=== PATIENT | female | born 1945 | race Caucasian/White ===

== ENCOUNTER 2024-01-21 10:13 | Outpatient (OUT) | payer MEDICARE, SELFPAY ==
[2024-01-21 10:33] LABS: Basophils Absolute Auto 0.1 10^3/uL (0.0-0.1); Basophils Percent Auto 0.8 % (0.2-2.0); Eosinophils Absolute Auto 0.1 10^3/uL (0.0-0.7); Eosinophils Percent Auto 1.5 % (0.9-7.0); Hematocrit 48.4 % (36.0-48.0); Hemoglobin 15.7 g/dL (12.0-16.0); Immature Granulocytes Abs Auto 0.03 10^3/uL (0.00-0.03); Immature Granulocytes Pct Auto 0.4 % (0.0-0.5); Lymphocytes Absolute Auto 3.3 10^3/uL (1.2-3.8); Lymphocytes Percent Auto 43.3 % (20.5-60.0); Mean Corpuscular HGB Conc 32.4 g/dL (29.9-35.2); Mean Corpuscular Hemoglobin 29.5 pg (26.7-34.0); Mean Corpuscular Volume 90.8 fL (81.0-99.0); Mean Platelet Volume 10.5 fL (9.5-13.5); Monocytes Absolute Auto 0.5 10^3/uL (0.3-0.8); Monocytes Percent Auto 6.8 % (1.7-12.0); Neutrophils Absolute Auto 3.6 10^3/uL (1.4-6.5); Neutrophils Percent Auto 47.2 % (43.0-75.0); Platelet Count 243 10^3/uL (150-450); Red Blood Count 5.33 10^6/uL (4.20-5.40); White Blood Count 7.5 10^3/uL (4.0-11.0)
[2024-01-21 10:59] LABS: Alanine Aminotransferase 32 U/L (14-59); Albumin Globulin Ratio 1.1; Albumin Level 3.9 g/dL (3.4-5.0); Alkaline Phosphatase 113 U/L (46-116); Anion Gap 12.7; Aspartate Amino Transferase 20 U/L (15-37); Bilirubin Direct 0.1 mg/dL (0.0-0.2); Bilirubin Total 0.5 mg/dL (0.2-1.0); Calcium 9.7 mg/dL (8.5-10.1); Carbon Dioxide 30.4 mmol/L (21.0-32.0); Chloride 103 mmol/L (98-107); Cholesterol 214 mg/dL (<=200); Estimated GFR (African America >60 (>=60); Estimated GFR (Non-African Ame >60 (>=60); Globulin 3.6 g/dL; Glucose 96 mg/dL (74-106); HDL Cholesterol 71 mg/dL (40-60); Potassium 4.1 mmol/L (3.5-5.1); Sodium 142 mmol/L (136-145); Thyroid Stimulating Hormone 1.298 uIU/mL (0.358-3.740); Total Protein 7.5 g/dL (6.4-8.2); Triglycerides 178 mg/dL (<=150); VLDL CHOLESTEROL 35.6 mg/dL
== END 2024-01-21 10:14 | disposition home or self-care (01) ==
LOC: LAB 10:16
PROVIDERS: PCP Family Medicine; Visit Provider Family Medicine
DX: E78.5 Hyperlipidemia, unspecified (principal); I10 Essential (primary) hypertension; Z79.899 Other long term (current) drug therapy; E66.9 Obesity, unspecified
CPT/HCPCS: 36415; 80048; 80061; 80076; 84443; 85025

== ENCOUNTER 2024-03-03 16:38 | Outpatient (OUT) | payer MEDICARE, SELFPAY ==
--- OUTSIDE RECORDS SUMMARY | 2024-03-03 17:00 | XMS_ITS | CCD ---
Author Organization [facility] Care Team Providers Care Environmental Science Professor Name Role Phone Gilda Thomson Unavailable RALPH Wise Attending Provider Lesley Wise Unavailable Lesley Wise Attending Unavailable Lesley Wise Admitting Unavailable WALLY, DR NURIA Hays Primary Care Unavailable PAY ., DR LUEVANO Attending Unavailable PAY ., DR LUEVANO Admitting Unavailable PAY ., DR LUEVANO Consulting Unavailable NADERER, DR NURIA Hays Consulting Unavailable NADEREMatt, DR NURIA Hays Attending Unavailable NADERER, DR NURIA Hays Admitting Unavailable NADERER, DR NURIA Hays Primary Care Unavailable [place], DR ARNALDO Rodriguez Consulting Unavailable NADERER, DR NURIA Hays Attending Unavailable NADERER, DR NURIA Hays Admitting Unavailable NADERER, DR NURIA Hays Primary Care Unavailable NADERER, DR NURIA Hays Consulting Unavailable NADERER, NURIA Attending Unavailable Allergies Allergy Classification Reported Allergen(s) Allergy Type Date of Onset Reaction(s) Facility (4 sources) diphenhydrAMINE; Translations: [Benadryl] Drug Allergy 01-05-20 17 throat [facility] Repository (1 source) diphenhydrAMINE Drug Allergy throat [facility] Other Medications Current Medications Medication Drug Class(es) Dates Sig (Normalized) Sig (Original) cephalexin 500 mg oral capsule (4 sources) Cephalosporin Antibacterial Start: 10-15-2022 take 1 capsule by mouth every eight hours Cephalexin 500 MG 1 capsule Orally three times a day for 7 days Oct, Active Start: 09-04-2021 take 1 tablet by toney th every twelve hours Cephalexin 500 MG 1 tablet Orally every 12 hrs for 10 day(s) Aug, Active ferrous sulfate (1 source) take 1 tablet by mouth once daily Ferrous Sulfate 325 (65 Fe) MG 1 tablet Orally Once a day Active lisinopril 5 mg oral tablet (4 sources) Angiotensin Converting Enzyme Inhibitor take 1 tablet by mouth every twenty-four hours Lisinopril 5 MG 1 tablet Orally Once a day Active Lisinopril Activ e methylPREDNISolone 4 mg oral tablet (1 source) Corticosteroid Start: 10-15-2022 methylPREDNISolone 4 MG as directed Orally Once a day for 6 days Oct, Active omeprazole 20 mg delayed release oral capsule (4 sources) Proton Pump Inhibitor take 1 capsule by mouth twice daily Omeprazole 20 MG 1 capsule 30 minutes before morning meal Orally twice a day Active Omeprazole Activ e Completed/Discontinued Medications Medication Drug Class(es) Dates Sig (Normalized) Sig (Original) fluconazole 150 mg oral tablet (4 sources) Azole Antifungal Start: 10-15-2022 Diflucan 150 MG 1 tablet Orally if needed after antibiotics completed for 1 days Oct, Active Start: 09-04-2021 take 1 tablet by mouth once Fl uconazole 150 MG 1 tablet Orally once for 1 day Aug, Active Problems Active Problems Problem Classification Problem Date Documented Date Episodic/Chronic Chronic obstructive pulmonary disease and bronchiectasis (1 source) Bronchitis, not specified as acute or chronic Episodic Disorders of lipid metabolism (1 source) Hyperlipidemia, unspecified; Translations: [HYPERLIPIDEMIA UNSPECIFIED] Onset: 01-19-2023 Chronic Essential hypertension (4 sources) Essential (primary) hypertension; Translations: [ESSENTIAL PRIMARY HYPERTENSION] Onset: 01-16-2023 Chronic Genitourinary symptoms and ill-defined conditions (4 sources) Frequency of micturition; Translations: [Other symptoms and signs involving the genitourinary system] Onset: 09-04-2021 Resolved: 09-04-2021 Episodic Other acquired deformities (1 source) Other forms of scoliosis, lumbar region; Translations: [OTHER FORMS SCOLIOSIS LUMBAR REGION] Onset: 11-23-2022 Chronic Other aftercare (1 source) Other termite renewal inspector (current) drug therapy; Translations: [OTH HALF-WAY CURRENT DRUG THERAPY] Onset: 01-19-2023 Episodic Other non-traumatic joint disorders (4 sources) Pain in left hip; Translations: [PAIN IN LEFT HIP] Onset: 11-21-2022 Episodic Other nutritional; endocrine; and metabolic disorders (1 source) Obesity, unspecified; Translations: [OBESITY UNSPECIFIED] Onset: 01-19-2023 Chronic Other nutritional; endocrine; and metabolic disorders (1 source) Body mass index (BMI) 30.0-30.9, adult; Translations: [BODY MASS INDEX BMI 30.0-30.9 ADULT] Onset: 01-19-2023 Chronic Spondylosis; intervertebral disc disorders; other back problems (1 source) Spondylosis without myelopathy or radiculopathy, lumbar region; Translations: [SPONDYLS W/O MYELO-/RADICULOP LUMB] Onset: 11-23-2022 Chronic Spondylosis; intervertebral disc disorders; other back problems (2 sources) Lumbago with sciatica, left side; Translations: [Radiculopathy, lumbar region] Onset: 11-16-2022 Episodic Unclassified (2 sources) LOW BACK PAIN, UNSPECIFIED; Translations: [LOW BACK PAIN, UNSPECIFIED] Onset: 11-16-2022 Urinary tract infections (1 source) Acute cystitis with hematuria Episodic Past or Other Problems Problem Classification Problem Date Documented Da te Episodic/Chronic Unclassified (1 source) Acute cough R05.1 Unclassified (1 source) LOW BACK PAIN, UNSPECIFIED; Translations: [LOW BACK PAIN, UNSPECIFIED] Onset: 11-14-2022 Results Test Name Value Interpretation Reference Range Facility CBC AUTO DIFFon 01-16-2023 BASO # 0.1 103/ul Normal 0.0-0.1 [facility] Comment on above: Performed By: #### C BC #### [facility] [address] [place] [address] Dr. Gustavo Han Basophils/100 WBC (Bld) 0.7 % Normal 0.2-2.0 [facility] Comment on above: Performed By: #### C BC #### [facility] [address] [place] [address] Dr. Gustavo Han EO # 0.1 103/ul Normal 0.0-0.7 [facility] Comment on above: Performed By: #### C BC #### [facility] [address] [place] [address] Dr. Gustavo Han Eosinophils/100 WBC (Bld) 2.0 % Normal 0.9-7.0 [facility] Comment on above: Performed By: #### C BC #### [facility] [address] [place] [address] Dr. Gustavo Han Erythrocyte distribution width (RBC) [Ratio] 13.1 % Normal 11.0-15.0 [facility] Comment on above: Performed By: #### C BC #### [facility] [address] [place] [address] Dr. Gustavo Han Hematocrit (Bld) [Volume fraction] 45.3 % Normal 36.0-48.0 [facility] Comment on above: Performed By: #### C BC #### [facility] [address] [place] [address] Dr. Gustavo Han Hemoglobin (Bld) [Mass/Vol] 15.2 g/dL Normal 12.0-16.0 [facility] Comment on above: Performed By: #### C BC #### [facility] [address] [place] [address] Dr. Gustavo Han IG # 0.02 10e3/ul Normal 0.00-0.03 [facility] Comment on above: Performed By: #### C BC #### [facility] [address] [place] [address] Dr. Gustavo Han IG % 0.3 % Normal 0.0-0.5 [facility] Comment on above: Performed By: #### C BC #### [facility] [address] [place] [address] Dr. Gustavo Han LYMPH # 2.5 103/ul Normal 1.2-3.8 [facility] Comment on above: Performed By: #### C BC #### [facility] [address] [place] [address] Dr. Gustavo Han Lymphocytes/100 WBC (Bld) 36.1 % Normal 20.5-60.0 [facility] Comment on above: Performed By: #### C BC #### [facility] [address] [place] [address] Dr. Gustavo Han MANUAL DIFF REQ NO Normal [facility] Comment on above: Performed By: #### C BC #### [facility] [address] [address] [address] Gustavo Han MCH (RBC) [Entitic mass] 29.7 pg Normal 26.7-34.0 [facility] Comment on above: Performed By: #### C BC #### [facility] [address] [place] [address] Dr. Gustavo Han MCHC (RBC) [Mass/Vol] 33.6 g/dL Normal 29.9-35.2 [facility] Comment on above: Performed By: #### C BC #### [facility] [address] [place] [address] Dr. Gustavo Han MCV (RBC) [Entitic vol] 88.5 fL Normal 81.0-99.0 [facility] Comment on above: Performed By: #### C BC #### [facility] [address] [place] [address] Dr. Gustavo Han MONO # 0.5 103/ul Normal 0.3-0.8 [facility] Comment on above: Performed By: #### C BC #### [facility] [address] [place] [address] Dr. Gustavo Han Monocytes/100 WBC (Bld) 6.8 % Normal 1.7-12.0 [facility] Comment on above: Performed By: #### C BC #### [facility] [address] [place] [address] Dr. Gustavo Han NEUT # 3.8 103/ul Normal 1.4-6.5 [facility] Comment on above: Performed By: #### C BC #### [facility] [address] [place] [address] Dr. Gustavo Han Neutrophils/100 WBC (Bld) 54.1 % Normal 43.0-75.0 [facility] Comment on above: Performed By: #### C BC #### [facility] [address] [place] [address] Dr. Gustavo Han Platelet mean volume (Bld) [Entitic vol] 10.6 fL Normal 9.5-13.5 [facility] Comment on above: Performed By: #### C BC #### [facility] [address] [address] [address] Gustavo Han PLT 230 103/ul Normal 150-450 [facility] Comment on above: Performed By: #### C BC #### [facility] [address] [address] [address] Gustavo Han RBC 5.12 106/ul Normal 4.20-5.40 [facility] Comment on above: Performed By: #### C BC #### [facility] [address] [address] [address] Gustavo Han WBC 7.0 103/ul Normal 4.0-11.0 [facility] Comment on above: Performed By: #### C BC #### [facility] [address] [place] [address] Dr. Gustavo Han LIPID PROFILEon 01-16-2023 CHOL-HDL RATIO NORM SEE BELOW Normal [facility] Comment on above: Result Comment: 3.3 - 4.4 LOW RISK 4.4 - 7.1 AVERAGE RISK 7.1 - 11.0 MODERATE RISK >11.0 HIGH RISK Performed By: #### T SH, LIVER, LIPID, BMP #### [facility] [address] [place] [address] Dr. Gustavo Han Cholesterol [Mass/Vol] 212 mg/dL Critically high <=200 [facility] Comment on above: Performed By: #### T SH, LIVER, LIPID, BMP #### [facility] [address] [place] [address] Dr. Gustavo Han Cholesterol in HDL [Mass/Vol] 63 mg/dL Critically high 40-60 [facility] Comment on above: Performed By: #### T SH, LIVER, LIPID, BMP #### [facility] [address] [place] [address] Dr. Gustavo Han Cholesterol in LDL [Mass/Vol] 120.0 mg/dL Normal [facility] Comment on above: Performed By: #### T SH, LIVER, LIPID, BMP #### [facility] [address] [place] [address] Dr. Gustavo Han Cholesterol.total /Cholesterol in HDL [Mass ratio] 3.4 {ratio} Normal [facility] Comment on above: Performed By: #### T SH, LIVER, LIPID, BMP #### [facility] [address] [place] [address] Dr. Gustavo Han HDL NORMAL > or = 60 mg/dl - LO W CARDIOVASCULAR RISK <40 mg/dl - HIGH CARDIOVASCULAR RISK Normal [facility] Comment on above: Performed By: #### T SH, LIVER, LIPID, BMP #### [facility] [address] [place] [address] Dr. Gustavo Han LDL CALC NORMAL SEE BELOW Normal [facility] Comment on above: Result Comment: <100 mg/dl OPTIMAL 100 - 129 mg/dl NEAR OR ABOVE OPTIMAL 130 - 159 mg/dl BORDERLINE HIGH 160 - 189 mg/dl HIGH >190 mg/dl VERY HIGH Performed By: #### T SH, LIVER, LIPID, BMP #### [facility] [address] [place] [address] Dr. Gustavo Han Triglyceride [Mass/Vol] 145 mg/dL Normal <=150 [facility] Comment on above: Performed By: #### T SH, LIVER, LIPID, BMP #### [facility] [address] [place] [address] Dr. Gustavo Han VLDL CALC 29.0 mg/dL Normal [facility] Comment on above: Performed By: #### T SH, LIVER, LIPID, BMP #### [facility] [address] [place] [address] Dr. Gustavo Han LIVER PROFILEon 01-16-2023 Albumin [Mass/Vol] 4.0 g/dL Normal 3.4-5.0 [facility] Comment on above: Performed By: #### T SH, LIVER, LIPID, BMP #### [facility] [address] [place] [address] Dr. Gustavo Han Albumin/Globulin [Mass ratio] 1.3 {ratio} Normal [facility] Comment on above: Performed By: #### T SH, LIVER, LIPID, BMP #### [facility] [address] [place] [address] Dr. Gustavo Han ALP [Catalytic activity/Vol] 94 U/L Normal 46-116 [facility] Comment on above: Performed By: #### T SH, LIVER, LIPID, BMP #### [facility] [address] [place] [address] Dr. Gustavo Han ALT [Catalytic activity/Vol] 28 U/L Normal 14-59 [facility] Comment on above: Performed By: #### T SH, LIVER, LIPID, BMP #### [facility] [address] [place] [address] Dr. Gustavo Han AST [Catalytic activity/Vol] 19 U/L Normal 15-37 [facility] Comment on above: Performed By: #### T SH, LIVER, LIPID, BMP #### [facility] [address] [place] [address] Dr. Gustavo Han BILI, CONJUGATED 0.1 mg/dL Normal 0.0-0.2 [facility] Comment on above: Performed By: #### T SH, LIVER, LIPID, BMP #### [facility] [address] [place] [address] Dr. Gustavo Han Bilirubin [Mass/Vol] 0.4 mg/dL Normal 0.2-1.0 [facility] Comment on above: Performed By: #### T SH, LIVER, LIPID, BMP #### [facility] [address] [place] [address] Dr. Gustavo Han Globulin (S) [Mass/Vol] 3.0 g/dL Normal [facility] Comment on above: Performed By: #### T SH, LIVER, LIPID, BMP #### [facility] [address] [place] [address] Dr. Gustavo Han Protein [Mass/Vol] 7.0 g/dL Normal 6.4-8.2 [facility] Comment on above: Performed By: #### T SH, LIVER, LIPID, BMP #### [facility] [address] [place] [address] Dr. Gustavo Han PROF CHEM 8 (BAS METB)on Anion gap [Moles/Vol] 13.3 mmol/L Normal [facility] Comment on above: Performed By: #### T SH, LIVER, LIPID, BMP #### [facility] [address] [address] [address] Gustavo Han Calcium [Mass/Vol] 10.2 mg/dL Critically high 8.5-10.1 [facility] Comment on above: Performed By: #### T SH, LIVER, LIPID, BMP #### [facility] [address] [address] [address] Gustavo Han Chloride [Moles/Vol] 105 mmol/L Normal 98-107 [facility] Comment on above: Performed By: #### T SH, LIVER, LIPID, BMP #### [facility] [address] [place] [address] Dr. Gustavo Han CO2 [Moles/Vol] 29.9 mmol/L Normal 21.0-32.0 [facility] Comment on above: Performed By: #### T SH, LIVER, LIPID, BMP #### [facility] [address] [place] [address] Dr. Gustavo Han Creatinine [Mass/Vol] 0.63 mg/dL Normal 0.55-1.02 [facility] Comment on above: Performed By: #### T SH, LIVER, LIPID, BMP #### [facility] [address] [place] [address] Dr. Gustavo Han EGFR-AF NIGERIAN >60 Normal >=60 [facility] Comment on above: Performed By: #### T SH, LIVER, LIPID, BMP #### [facility] [address] [place] [address] Dr. Gustavo Han EGFR-NON AF NIGERIAN >60 Normal >=60 [facility] Comment on above: Performed By: #### T SH, LIVER, LIPID, BMP #### [facility] [address] [place] [address] Dr. Gustavo Han Glucose [Mass/Vol] 99 mg/dL Normal 74-106 [facility] Comment on above: Performed By: #### T SH, LIVER, LIPID, BMP #### [facility] [address] [place] [address] Dr. Gustavo Han Potassium [Moles/Vol] 4.2 mmol/L Normal 3.5-5.1 [facility] Comment on above: Performed By: #### T BARBARA, LIVER, LIPID, BMP #### [facility] [address] [address] [address] Gustavo Han Sodium [Moles/Vol] 144 mmol/L Normal 136-145 [facility] Comment on above: Performed By: #### T BARBARA, LIVER, LIPID, BMP #### [facility] [address] [address] [address] Gustavo Han Urea nitrogen [Mass/Vol] 19.0 mg/dL Critically high 7.0-18.0 [facility] Comment on above: Performed By: #### T BARBARA, LIVER, LIPID, BMP #### [facility] [address] [address] [address] Gustavo Han Urea nitrogen/Creatini ne [Mass ratio] 30.2 mg/mg Normal [facility] Comment on above: Performed By: #### T BARBARA, LIVER, LIPID, BMP #### [facility] [address] [address] [address] Gustavo Han TSHon 01-16-2023 TSH 0.755 uIU/mL Normal 0.358-3.740 [facility] Comment on above: Performed By: #### T BARBARA, LIVER, LIPID, BMP #### [facility] [address] [address] [address] Gustavo Han XR LSPINE 2_3 VIEWSon 2022 XR LSPINE 2_3 VIEWS EXAMINATION: XR LSPINE 2_3 VIEWS HISTORY: Lumbago with sciatica COMPARISON: No relevant comparison available. FINDINGS: BONES: Rotatory levocurvature centered at L2-L3. Moderate diffuse degenerative spondylosis and facet osteoarthropathy DISC SPACES: Moderate to severe multilevel disc space narrowing with endplate sclerosis and vacuum disks PARASPINOUS: Negative. No paraspinous abnormality is seen. 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 Electronically authenticated by: ARNALDO NORIEGA Date: 2022-11-21 12:15 Normal [facility] COVID Quick Testingon 2021 Result Negative [facility] Other Urinalysis - AUTOMATEDon Appearance (U) CLOUDY [email or web address] Other Bilirubin Ql (U) Negative [employer] Other Color (U) yellow [facility] Other Glucose Ql (U) Negative [email or web address] Other Hemoglobin Ql (U) SMALL [employer] Other Ketones Ql (U) Negative [email or web address] Other Leukocyte esterase Test strip Ql (U) TRACE [facility] Other Nitrite Ql (U) Negative [email or web address] Other pH (U) 5.5 [pH] [facility] Other Protein Ql (U) Negative [email or web address] Other Specific gravity (U) [Rel density] >=1.030 [facility] Other Urobilinogen (U) [Mass/Vol] 0.2 mg/dL [facility] Other Urinalysis - AUTOMATED [facility] Other Urine Cultureon 10-15-2022 Bacteria identified Cx Nom (U) Reason for Exam Urgency of urination Urine Reason for Exam: Urgency of urination : Urine 20,000 colonies/ml mixed bacterial skin contaminants 2 Days PERFORMED BY: [place] [address] PATHOLOGIST MANAGER USER INTERFACE HARI BISHOP M.D. Normal [facility] Comment on above: Performed By: #### C UU #### [address] Urine Cultureon 09-04-2021 Urine Culture >100,000 [facility] Other Vital Signs Date Time Vital Sign Value Performing Clinician Facility 10-15-2022 12:50-0500 Body height 157.48 cm Lesley Wise Other [facility] Other 10-15-2022 12:50-0500 Body mass index (BMI) [Ratio] 30.1 kg/m2 Lesley Wise Other [facility] Other 10-15-2022 12:50-0500 Body temperature 98 [degF] Lesley Wise Other [facility] Other 10-15-2022 12:50-0500 Body weight 74.66 kg Lesley Wise Other [facility] Other 10-15-2022 12:50-0500 Diastolic blood pressure 78 mm[Hg] Lesley Wise Other [facility] Other 10-15-2022 12:50-0500 Respiratory rate 18 /min Lesley Wise Other [facility] Other 10-15-2022 12:50-0500 SaO2% (BldA) [Mass fraction] 95 % Lesley Wise Other [facility] Other 10-15-2022 12:50-0500 Systolic blood pressure 142 mm[Hg] Lesley Wise Other [facility] Other 09-04-2021 12:50-0400 Body height 157.48 cm Gilda Berto Other [facility] Other 09-04-2021 12:50-0400 Body mass index (BMI) [Ratio] 30.72 kg/m2 Gilda Ginty Other [facility] Other 09-04-2021 12:50-0400 Body temperature 96.5 [degF] Gilda Ginty Other [facility] Other 09-04-2021 12:50-0400 Body weight 76.2 kg Gilda Ginty Other [facility] Other 09-04-2021 12:50-0400 Diastolic blood pressure 94 mm[Hg] Gilda Ginty Other [facility] Other 09-04-2021 12:50-0400 Respiratory rate 16 /min Gilda Ginty Other [facility] Other 09-04-2021 12:50-0400 SaO2% (BldA) [Mass fraction] 96 % Gilda Ginty Other [facility] Other 09-04-2021 12:50-0400 Systolic blood pressure 143 mm[Hg] Gilda Ginty Other [facility] Other Encounters Encounter Date Encounter Type Care Provider Facility Start: 01-21-2024 End: 01-21-2024 ambulatory NURIA LO Not Available Start: 01-16-2023 End: 01-17-[address] NURIA LO Facility:[facility] Start: 11-21-2022 End: 11-22-[address] ARNALDO NORIEGA Facility:[facility] Start: 11-14-2022 End: 11-14-[address] NURIA LO Facility:[facility] Start: 10-15-2022 End: 10-15-2022 ambulatory Lesley Wise Facility:[facility] Start: 10-15-2022 Office outpatient visit 15 minutes Lesley Wise [facility] Start: 10-15-2022 End: 10-15-2022 ambulatory BREAD SUPERVISOR-C Lesley Wise Work Phone: [facility] Work Phone: Start: 10-15-2022 End: 10-15-2022 Departed Referred BREAD SUPERVISOR-C Lesley Wise Work Phone: [facility] [place] Start: 09-13-2021 End: 09-13-2021 ambulatory Gilda Ginty Other [facility] Other Start: 09-13-2021 Telephone encounter Gilda Ginty [facility] [address] Start: 09-07-2021 End: 09-07-2021 ambulatory Gilda Ginty Other [facility] Other Start: 09-07-2021 Telephone encounter Gilda Ginty [facility] Start: 09-04-2021 End: 09-04-2021 ambulatory Gilda Ginty Other [facility] Other Start: 09-04-2021 Office outpatient visit 15 minutes Gilda Ginty [facility] Plan of Treatment Date Care Activity Detail Author Bacteria identified in Urine by Culture [facility] Payers Date Payer Category Payer Self-pay [id number] 1960 Private Health Insurance [id number] 1945 Unknown [id number] 1945 Unknown [id number] 1945 Unknown [id number] .[id number] [id number] 1945 Unknown [id number] [id number] Medicare [id number] 2.16.8 [id number] Unknown [id number] 2.16.8 [id number] Social History Date Type Detail Facility Sex Assigned At [facility] Other Start: 1945 Sex Assigned At Female F [facility] Clinical Note 11-21-2022 Note Date & Type Note Facility 11-21-2022 Note PROCEDURE: XR HIP LT 2 3V WO PELVIS COMPARISON: None. HISTORY: Pain of left hip joint FINDINGS: BONES:No fracture, acute abnormality, or significant arthropathy. Focal sclerosis with a narrow zone of transition intertrochanteric femur likely a benign enostosis SOFT TISSUES:Negative. No visible soft tissue swelling. EFFUSION:None visible. OTHER: Negative. IMPRESSION: No acute abnormality Electronically authenticated by: ARNALDO NORIEGA Date: 2022-11-21 12:13 [facility] Evaluation note 10-15-2022 Note Date & Type Note Facility 10-15-2022 Evaluation note Encounter Date Diagnosis Assessment Notes Oct, Acute cough (ICD-10 - R05.1) Oct, Bronchitis (ICD-10 - J40) Take medications as directed. Rest and increase fluid intake. Take meds with food to prevent stomach upset. Use inhaler as needed for coughing spells and SOB. It is better to use inhaler a few times a day over the next 2-3 days. Follow up with primary care provider if symptoms do not improve with treatment plan, although it may take a few weeks for the cough to go away Oct, Urgency of urination (ICD-10 - R39.15) Oct, Acute cystitis with hematuria (ICD-10 - N30.01) Take medication as directed. Urine analysis shows abnormalities today in office. Urine culture will be sent to lab. Will call with results if warranted. Increase fluid intake. Follow hygiene guidelines such as wiping front to back, avoid using perfumed lotions, bath beads, bubble bath. Recommend follow up with primary care provider after treatment completed to make sure infection has cleared. [facility] Other Evaluation note 09-04-2021 Note Date & Type Note Facility 09-04-2021 Evaluation note Encounter Date Diagnosis Assessment Notes Aug, Frequency of urination (ICD-10 - R35.0) Aug, Suspected UTI (ICD-10 - R39.89) Discussed diagnosis with patient. Will treat patient for UTI. Instructed patient to take antibiotic as prescribed, take with food, complete entire course of therapy even if feeling better. Allergies and recent antibiotic use was reviewed with patient. Advised patient culture was sent today and we will call with her results if abx needs changed. Patient instructed to push fluids. Will send in rx for Diflucan per patient request. Advised patient to take Diflucan following antibiotic treatment if experiencing symptoms. Patient symptoms should improve in the next 48 hours, if symptoms persist follow up with PCP or UC. Immediate eval by ER if back or flank pain, fever, chills, N/V, or any other concerning symptoms. Patient verbalizes understanding and is agreeable to treatment plan [facility] Other Evaluation note Note Date & Type Note Facility Evaluation note No Information [facility] Other Evaluation note Note Date & Type Note Facility Evaluation note No assessment information [facility] Work Phone: History general Narrative - Reported Note Date & Type Note Facility History general Narrative - Reported Type Medical History hypertension Medical History acid reflux Medical History osteoarthritis Medical History Anxiety Medical History Depression Surgical History tonsillectomy and adenoidectomy Surgical History hysterectomy Surgical History appendectomy Surgical History right ankle surgery Surgical History right arm lump removed Hospitalization History See Above [facility] Other History general Narrative - Reported Note Date & Type Note Facility History general Narrative - Reported Type Medical History hypertension Medical History acid reflux Medical History osteoarthritis Medical History Anxiety Medical History Depression Medical History ANEMIC Surgical History tonsillectomy and adenoidectomy Surgical History hysterectomy Surgical History appendectomy Surgical History right ankle surgery Surgical History right arm lump removed Hospitalization History See Above [facility] Other Chief Complaint and Reason for Visit Chief Complaint R39.15 Advance Directives No Advanced Directives Records Found Advance Directive Response Recorded Date/ Time Advance Directives No September 13, 2021 2:34pm Summary Purpose Family History No Family History Records FoundNo Family History Records FoundNo Family History Records Found Additional Source Comments REASON FOR VISIT (unrecogniz ed section and content) cough, congestionURINARY RAJESH QUENCY, URGENCY Care Teams (unrecognized sec tion and content) Team Status: Inactive Member Role Status Dates RALPH Delgadillo Attending Provider Active Goals (unrecognized section and content) Goals may be documented in a n alternate section INFORMATION SOURCE (unrecogn ized section and content) DATE CREATED AUTHOR 10/18/2022 [facility] DATE CREATED AUTHOR AUTHOR'S ORGANIZ ATION 01/20/2023 [facility] DATE CREATED AUTHOR AUTHOR'S ORGANIZ ATION 01/21/2024 [facility] FOR RECORDS PERTAINING TO PATIENTS WHO ARE OR HAVE BEEN ENROLLED IN A CHEMICAL DEPENDENCY/SUBSTANCEABUSE PROGRAM, SOME INFORMATION MAY BE OMITTED. This clinical summary was aggregated from multiple sources. Caution should be exercised in using it in the provision of clinical care. This summary normalizes information from multiple sources, and as a consequence, information in this document may materially change the coding, format and clinical context of patient data. In addition, data may be omitted in some cases. CLINICAL DECISIONS SHOULD BE BASED ON THE PRIMARY CLINICAL RECORDS. [facility] [employer] provides no warranty or guarantee of the accuracy or completeness of information in this document.
[2024-03-03 17:03] LABS: Bilirubin Urine NEGATIVE (NEGATIVE); Blood Urine TRACE-I (NEGATIVE); Clarity Urine CLEAR (CLEAR); Color Urine YELLOW (YELLOW); Glucose Urine UA NEGATIVE (NEGATIVE); Ketones Urine NEGATIVE (NEGATIVE); Leukocyte Esterase Urine SMALL (NEGATIVE); Nitrite Urine NEGATIVE (NEGATIVE); Protein Urine NEGATIVE (NEG/TRACE); Specific Gravity Urine >=1.030 (1.005-1.025); Urobilinogen Urine 0.2 EU/dL (0.2-1.0)
[2024-03-03 17:04] LABS: Urine Microscopic Indicated YES
[2024-03-03 17:13] LABS: Bacteria Urine TRACE #/HPF (NONE SEEN); Mucus Urine TRACE (NONE SEEN); Squamous Epithelial Cell Urine FEW #/LPF (NONE/RARE)
[2024-03-03 17:14] LABS: Cast Seen? NONE SEEN #/LPF (NONE SEEN); Crystals Seen? None Seen #/HPF (None Seen); Urine Culture Indicated ALREADY ORDERED
== END 2024-03-03 16:39 | disposition home or self-care (01) ==
LOC: LAB 16:43
PROVIDERS: PCP Family Medicine; Visit Provider Family Medicine
DX: N39.0 Urinary tract infection, site not specified (principal)
CPT/HCPCS: 81001; 87086

== ENCOUNTER 2024-05-19 19:04 | Emergency (ER) | payer MEDICARE, SELFPAY ==
[2024-05-19 19:09] VITALS: BP 138/78; PULSE 90; TEMP 37.1; O2SAT 95; BMI 27.0
--- NOTE | 2024-05-19 19:21 | ECG_ITS ---
The [facility] Test Date: 2024-05-19 Pat Name: ANNETTE MACIEL Department: Room: - Gender: Female Return Agent: : 1945 Requested By: NURIA LO Order Number: [id number] Reading MD: MOLLY THRASHER Measurements Intervals [place] Rate: 82 P: 32 ME: 138 QRS: 9 QRSD: 90 T: -16 QT: 336 QTc: 375 Interpretive Statements 1100 Sinus rhythm 2420 RSR (QR) in lead V1/V2, consistent with right ventricular conduction delay 4068 Nonspecific Twave abnormality, can't exclude inferolateral ischemia 9130 borderline ECG Electronically Signed On 05-19-2024 23:08:29 EDT by MOLLY THRASHER
--- NOTE | 2024-05-19 21:54 | ED_ITS ---
HPI - Dizziness General Chief Complaint: Dizziness Stated Complaint: DIZZY Time Seen by Provider: 05/19/24 21:45 Source: patient Mode of arrival: Wheelchair History of Present Illness HPI Narrative: patient presents complaining of low grade fever since last week. States she was seen at Urgent Care today and they are treating her for Bronchitis. She informed them of her dizziness and she stated she has been having a problem with dizzine ss for the past month. states if she sits back down it resolves. She is asymptomatic now . Denies headache or extremity numbness or weakness. No ear pain Related Data Allergies Allergy/AdvReac Type Severity Reaction Status Date / Time diphenhydramine Allergy Severe Anaphylaxis Verified 05/19/24 19:18 [From Benadryl] Review of Systems ROS Status of ROS 10 or more systems reviewed and unremark able except as noted in history and below Exam Constitutional Vital Signs, click to edit/add: Last Vital Signs Temp 98.8 F 05/19/24 19:09 Pulse 86 05/19/24 22:59 Resp 18 05/19/24 22:59 BP 143/97 H 05/19/24 22:26 Pulse Ox 97 05/19/24 22:59 O2 Del Method Room Air 05/19/24 19:09 Common normals: no apparent distress, average body habitus, oriented x3, no limitations, healthy appearing, alert and well nourished [facility] Common normals: normocephalic and head/scalp atraumatic Tympanic membrane: TMs normal bilaterally Eye Common normals: PERRL, EOMs intact bilaterally and conjunctivae normal Respiratory Common normals: normal respiratory effort, no retractions, no use of accessory muscles and clear to auscultation bilaterally Cardio Common normals: regular rate, regular rhythm, S1 normal heart sound and S2 normal heart sound GI Common normals: Normal to inspection, nondistended, normoactive bowel sounds present, soft to palpation and non-tender Extremity Common normals: normal to inspection and full ROM Neuro Common normals: oriented x3, CN's II-XII intact bilaterally, moves all ex tremities and no focal motor deficits Psych Appearance: grossly normal Course Vital Signs Vital signs: Vital Signs Temperature 98.8 F 05/19/24 19:09 Pulse Rate 90 05/19/24 19:09 Respiratory Rate 18 05/19/24 19:09 Blood Pressure 138/78 07/08/24 19:09 Pulse Oximetry 95 05/19/24 19:09 Oxygen Delivery Method Room Air 05/19/24 19:09 Temperature 98.8 F 05/19/24 19:09 Pulse Rate 86 05/19/24 22:59 Respiratory Rate 18 05/19/24 22:59 Blood Pressure 143/97 H 05/19/24 22:26 Pulse Oximetry 97 05/19/24 22:59 Oxygen Delivery Method Room Air 05/19/24 19:09 MDM - Dizziness MDM Narrative Medical decision making narrative: patient presents complaining of dizziness for past month. Describe standing and feeling off balance. States the other day she tried walking on mulch and felt off balance. Was seen at urgent care today for URI but advised to come here because of her complaint of feeling off balance. No symptoms at this time. CT without acute changes. 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 labs WNL. Patient discharged and advised to follow up with her doctor to continue workup as an out patient Lab Data Labs: Lab Results 05/19/24 Range/Units 21:52 WBC 11.1 H (4.0-11.0) 10^3/uL RBC 5.18 (4.20-5.40) 10^6/uL Hgb 15.3 (12.0-16.0) g/dL Hct 45.3 (36.0-48.0) % MCV 87.5 (81.0-99.0) fL MCH 29.5 (26.7-34.0) pg MCHC 33.8 (29.9-35.2) g/dL RDW 12.5 (11.0-15.0) % Plt Count 218 (150-450) 10^3/uL MPV 11.0 (9.5-13.5) fL Neut % (Auto) 75.3 H (43.0-75.0) % Lymph % (Auto) 14.9 L (20.5-60.0) % Phillips % (Auto) 9.1 (1.7-12.0) % Eos % (Auto) 0.0 L (0.9-7.0) % Baso % (Auto) 0.4 (0.2-2.0) % Neut # (Auto) 8.4 H (1.4-6.5) 10^3/uL Lymph # (Auto) 1.7 (1.2-3.8) 10^3/uL Phillips # (Auto) 1.0 H (0.3-0.8) 10^3/uL Eos # (Auto) 0.0 (0.0-0.7) 10^3/uL Baso # (Auto) 0.0 (0.0-0.1) 10^3/uL Abs Immat Gran (auto) 0.03 (0.00-0.03) 10^3/uL Imm/Tot Granulo (auto) 0.3 (0.0-0.5) % Sodium 135 L (136-145) mmol/L Potassium 3.2 L (3.5-5.1) mmol/L Chloride 99 (98-107) mmol/L Carbon Dioxide 22.5 (21.0-32.0) mmol/L Anion Gap 16.7 BUN 15.0 (7.0-18.0) mg/dL Creatinine 0.72 (0.55-1.02) mg/dL Est GFR ( Amer) >60 (>=60) Est GFR (Non-Af Amer) >60 (>=60) BUN/Creatinine Ratio 20.8 Glucose 126 H (74-106) mg/dL Calcium 10.2 H (8.5-10.1) mg/dL Total Bilirubin 1.0 (0.2-1.0) mg/dL AST 19 (15-37) U/L ALT 30 (14-59) U/L Alkaline Phosphatase 106 (46-116) U/L Total Protein 7.6 (6.4-8.2) g/dL Albumin 3.8 (3.4-5.0) g/dL Globulin 3.8 g/dL Albumin/Globulin Ratio 1.0 Imaging Data Chest x-ray: Radiologist's impression: ITS Impressions Head CT 05/19/24 21:59 IMPRESSION: 1. No depressed skull fracture or intracranial hemorrhage. 2. 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 Mild to moderate cerebral volume loss. Electronically authenticated by: RO FARIA Date: 05/19/2024 23:26 Discharge Plan Discharge Stand Alone Forms: Portal Instructions Chief Complaint: Dizziness Clinical Impression: Dizziness, nonspecific Patient Disposition: Home, Self-Care Print Language: Bahraini Instructions: Dizziness (ED) Additional Instructions: follow up with your doctor this week for recheck Referrals: Van Grimm MD [Primary Care Provider] - 1 week
--- NOTE | 2024-05-19 21:59 | CT_ITS ---
The [address] [address] Patient Name: ANNETTE MACIEL MRN: [id number] date: 1945 Sex: F Assigned Patient Location: ER Current Patient Location: ER Accession/Order Number: [id number] Exam Date: 05/19/2024 22:10 Report Date: 05/19/2024 23:26 At the request of: JORJE CHOI Procedure: CT head/brain wo con EXAM: CT head/brain wo con HISTORY: Dizziness with multiple falls. TECHNIQUE: Axial CT scans through the head were obtained without IV contrast administration. Dose reduction techniques were achieved by using: automated exposure control and/or adjustment of mA and /or kV according to patient size and/or the use of an iterative reconstruction technique. COMPARISON: None. FINDINGS: Mild periventricular low attenuation in the cerebral hemispheres without associated mass effect. To the limit of CT, the posterior fossa appears unremarkable. No intracranial hemorrhage is present. No depressed skull fracture is present. The ventricular system and cortical sulci are prominent. No area of abnormal mass effect is shown. The visualized orbits show no gross mass. The visualized paranasal sinuses show no air-fluid levels. Mastoid air cells are clear. CT/CT head/brain wo con IMPRESSION: 1. No depressed skull fracture or intracranial hemorrhage. 2. 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 Mild to moderate cerebral volume loss. Electronically authenticated by: RO FARIA Date: 05/19/2024 23:26
[2024-05-19 22:04] LABS: Basophils Percent Auto 0.4 % (0.2-2.0); Hematocrit 45.3 % (36.0-48.0); Hemoglobin 15.3 g/dL (12.0-16.0); Immature Granulocytes Abs Auto 0.03 10^3/uL (0.00-0.03); Immature Granulocytes Pct Auto 0.3 % (0.0-0.5); Lymphocytes Absolute Auto 1.7 10^3/uL (1.2-3.8); Lymphocytes Percent Auto 14.9 % (20.5-60.0); Mean Corpuscular HGB Conc 33.8 g/dL (29.9-35.2); Mean Corpuscular Hemoglobin 29.5 pg (26.7-34.0); Mean Corpuscular Volume 87.5 fL (81.0-99.0); Monocytes Percent Auto 9.1 % (1.7-12.0); Neutrophils Absolute Auto 8.4 10^3/uL (1.4-6.5); Neutrophils Percent Auto 75.3 % (43.0-75.0); Platelet Count 218 10^3/uL (150-450); Red Blood Count 5.18 10^6/uL (4.20-5.40); Red Cell Distribution Width 12.5 % (11.0-15.0); White Blood Count 11.1 10^3/uL (4.0-11.0)
[2024-05-19 22:20] LABS: Alanine Aminotransferase 30 U/L (14-59); Albumin Level 3.8 g/dL (3.4-5.0); Alkaline Phosphatase 106 U/L (46-116); Anion Gap 16.7; Aspartate Amino Transferase 19 U/L (15-37); BUN Creatinine Ratio 20.8; Calcium 10.2 mg/dL (8.5-10.1); Carbon Dioxide 22.5 mmol/L (21.0-32.0); Chloride 99 mmol/L (98-107); Estimated GFR (African America >60 (>=60); Estimated GFR (Non-African Ame >60 (>=60); Globulin 3.8 g/dL; Glucose 126 mg/dL (74-106); Potassium 3.2 mmol/L (3.5-5.1); Sodium 135 mmol/L (136-145); Total Protein 7.6 g/dL (6.4-8.2)
[2024-05-19 22:26] VITALS: BP 143/97; BP 152/89; BP 154/100; PULSE 85; PULSE 88; PULSE 90
[2024-05-19 22:59] VITALS: PULSE 86; O2SAT 97
[2024-05-20 00:13] VITALS: BP 142/76; PULSE 80; O2SAT 100
== END 2024-05-20 00:13 | disposition home or self-care (01) ==
PROVIDERS: Emergency Provider Internal Medicine; PCP Family Medicine
DX: R42 Dizziness and giddiness (principal)
CPT/HCPCS: 36415; 70450; 80053; 85025; 93005; 99285

== ENCOUNTER 2024-05-28 20:48 | Outpatient (REF) | payer MEDICARE, SELFPAY ==
--- OUTSIDE RECORDS SUMMARY | 2024-05-28 20:52 | XMS_ITS | CCD ---
Author Organization [facility] Care Team Providers Care Doctor Of Nurse Anesthesia Name Role Phone Gilda Thomson Unavailable RALPH Wise Attending Provider [phone] Lesley Wise Unavailable Lesley Wise Attending Unavailable Lesley Wise Admitting Unavailable WALLY, DR VAN Hays Primary Care Unavailable PAY ., DR LUEVANO Attending Unavailable PAY ., DR LUEVANO Admitting Unavailable PAY ., DR LUEVANO Consulting Unavailable NADERER, DR VAN Hays Consulting Unavailable NADEREMatt, DR VAN Hays Attending Unavailable NADERER, DR VAN Hays Admitting Unavailable NADERER, DR VAN Hays Primary Care Unavailable [place], DR ARNALDO Rodriguez Consulting Unavailable NADERER, DR VAN Hays Attending Unavailable NADERER, DR VAN Hays Admitting Unavailable NADERER, DR VAN Hays Primary Care Unavailable NADERER, DR VAN Hays Consulting Unavailable NADERER, VAN Attending Unavailable Allergies Allergy Classification Reported Allergen(s) Allergy Type Date of Onset Reaction(s) Facility (4 sources) diphenhydrAMINE; Translations: [Benadryl] Drug Allergy 01-05-20 17 throat [facility] Repository (1 source) diphenhydrAMINE Drug Allergy throat [facility] [employer] Other Medications Current Medications Medication Drug Class(es) Dates Sig (Normalized) Sig (Original) ALPRAZolam 1 mg oral tablet (1 source) Benzodiazepine Start: 05-19-2024 Alprazolam Active MG PO May 19, 2024 12:00am Azithromycin (1 source) Macrolide Antimicrobial Start: 05-19-2024 Azithromycin Active 0 PO .COMPLEX 6 May 19, 2024 12:00am For 250 mg dose pack: take 500 mg today (day 1), then 250 mg for 4 days (days 2-5) PO cephalexin 500 mg oral capsule (4 sources) Cephalosporin Antibacterial Start: 10-15-2022 take 1 capsule by mouth every eight hours Cephalexin 500 MG 1 capsule Orally three times a day for 7 days Oct, Active Start: 09-04-2021 take 1 tablet by toney th every twelve hours Cephalexin 500 MG 1 tablet Orally every 12 hrs for 10 day(s) Aug, Active ferrous sulfate (2 sources) Start: 05-19-2024 take 1 tablet by toney th once daily Ferrous Sulfate Active 1 TAB PO Daily May 19, 2024 12:00am [employer] tablet Orally Once a day; Note: Source Status: Taking; Provider: Billie Sutton ( ) take 1 tablet by mouth once laquita y Ferrous Sulfate 325 (65 Fe) MG 1 tablet Orally Once a day Active lisinopril 5 mg oral tablet (5 sources) Angiotensin Converting Enzyme Inhibitor Start: 05-19-2024 Lisinopril Active MG PO May 19, 2024 12:00am take 1 tablet by toney th every twenty-four hours Lisinopril 5 MG 1 tablet Orally Once a day Active Lisinopril Activ e methylPREDNISolone 4 mg oral tablet (2 sources) Corticosteroid Start: 05-19-2024 take 1 tablet by mouth once Methylprednisolone (Medrol (Aristeo)) 4 mg tablets,dose pack Active 0 PO per package directions May 19, 2024 12:00am PO PER PKG DIR Start: 10-15-2022 methylPREDNISo lone 4 MG as directed Orally Once a day for 6 days Oct, Active omeprazole 20 mg delayed release oral capsule (5 sources) Proton Pump Inhibitor Start: 05-19-2024 Omeprazo le Active MG PO May 19, 2024 12:00am take 1 capsule by mouth twice da singh Omeprazole 20 MG 1 capsule 30 minutes [...] 11-23-2022 Chronic Other aftercare (1 source) Other terminal superintendent (current) drug therapy; Translations: [OTH RETIREMENT CURRENT DRUG THERAPY] Onset: 01-19-2023 Episodic Other [...] Test Name Value Interpretation Reference Range Facility No Panel InformationOrdered By: Silva Baker on 05-19-2024 COVID Antigen (POC) [facility] CBC AUTO DIFFon 01-16-2023 BASO # 0.1 103/ul Normal 0.0-0.1 [facility] Comment on above: Performed By: #### C BC #### [facility] [address] [address] [address] Gustvao Han Basophils/100 WBC (Bld) 0.7 % Normal 0.2-2.0 [facility] Comment on above: Performed By: #### C BC #### [facility] [address] [address] [address] Gustavo Han EO # 0.1 103/ul Normal 0.0-0.7 [facility] Comment on above: Performed By: #### C BC #### [facility] [address] [address] [address] Gustavo Han Eosinophils/100 WBC (Bld) 2.0 % Normal 0.9-7.0 [facility] Comment on above: Performed By: #### C BC #### [facility] [address] [address] [address] Gustavo Han Erythrocyte distribution width (RBC) [Ratio] 13.1 % Normal 11.0-15.0 [facility] Comment on above: Performed By: #### C BC #### [facility] [address] [address] [address] Gustavo Han Hematocrit (Bld) [Volume fraction] 45.3 % Normal 36.0-48.0 [facility] Comment on above: Performed By: #### C BC #### [facility] [address] [address] [address] Gustavo Han Hemoglobin (Bld) [Mass/Vol] 15.2 g/dL Normal 12.0-16.0 [facility] Comment on above: Performed By: #### C BC #### [facility] [address] [place] [address] Dr. Gustavo Han IG # 0.02 10e3/ul Normal 0.00-0.03 [facility] Comment on above: Performed By: #### C BC #### [facility] [address] [place] [address] Dr. uGstavo Han IG % 0.3 % Normal 0.0-0.5 [facility] Comment on above: Performed By: #### C BC #### [facility] [address] [place] [address] Dr. Gustavo Han LYMPH # 2.5 103/ul Normal 1.2-3.8 [facility] Comment on above: Performed By: #### C BC #### [facility] [address] [place] [address] Dr. Gustavo Han Lymphocytes/100 WBC (Bld) 36.1 % Normal 20.5-60.0 [facility] Comment on above: Performed By: #### C BC #### [facility] [address] [place] [address] Dr. Gustavo Han MANUAL DIFF REQ NO Normal [facility] Comment on above: Performed By: #### C BC #### [facility] [address] [place] [address] Dr. Gustavo Han MCH (RBC) [Entitic mass] 29.7 pg Normal 26.7-34.0 [facility] Comment on above: Performed By: #### C BC #### [facility] [address] [place] [address] Dr. Gustavo Han MCHC (RBC) [Mass/Vol] 33.6 g/dL Normal 29.9-35.2 [facility] Comment on above: Performed By: #### C BC #### [facility] [address] [place] [address] Dr. Gustavo Han MCV (RBC) [Entitic vol] 88.5 fL Normal 81.0-99.0 [facility] Comment on above: Performed By: #### C BC #### [facility] [address] [place] [address] Dr. Gustavo Han MONO # 0.5 103/ul Normal 0.3-0.8 [facility] Comment on above: Performed By: #### C BC #### [facility] [address] [place] [address] Dr. Gustavo Han Monocytes/100 WBC (Bld) 6.8 % Normal 1.7-12.0 [facility] Comment on above: Performed By: #### C BC #### [facility] [address] [place] [address] Dr. Gustavo Han NEUT # 3.8 103/ul Normal 1.4-6.5 [facility] Comment on above: Performed By: #### C BC #### [facility] [address] [place] [address] Dr. Gustavo Han Neutrophils/100 WBC (Bld) 54.1 % Normal 43.0-75.0 [facility] Comment on above: Performed By: #### C BC #### [facility] [address] [place] [address] Dr. Gustavo Han Platelet mean volume (Bld) [Entitic vol] 10.6 fL Normal 9.5-13.5 [facility] Comment on above: Performed By: #### C BC #### [facility] [address] [place] [address] Dr. Gustavo Han PLT 230 103/ul Normal 150-450 [facility] Comment on above: Performed By: #### C BC #### [facility] [address] [place] [address] Dr. Gustavo Han RBC 5.12 106/ul Normal 4.20-5.40 [facility] Comment on above: Performed By: #### C BC #### [facility] [address] [place] [address] Dr. Gustavo Han WBC 7.0 103/ul Normal 4.0-11.0 [facility] Comment on above: Performed By: #### C BC #### [facility] [address] [place] [address] Dr. Gustavo Han LIPID PROFILEon 01-16-2023 CHOL-HDL RATIO NORM SEE BELOW Normal [facility] Comment on above: Result Comment: 3.3 - 4.4 LOW RISK 4.4 - 7.1 AVERAGE RISK 7.1 - 11.0 MODERATE RISK >11.0 HIGH RISK Performed By: #### T SH, LIVER, LIPID, BMP #### [facility] [address] [address] [address] Gustavo Han Cholesterol [Mass/Vol] 212 mg/dL Critically high <=200 [facility] Comment on above: Performed By: #### T SH, LIVER, LIPID, BMP #### [facility] [address] [place] [address] Dr. Gustavo Han Cholesterol in HDL [Mass/Vol] 63 mg/dL Critically high 40-60 [facility] Comment on above: Performed By: #### T SH, LIVER, LIPID, BMP #### [facility] [address] [place] [address] Dr. Gustavo Han Cholesterol in LDL [Mass/Vol] 120.0 mg/dL Normal [facility] Comment on above: Performed By: #### T SH, LIVER, LIPID, BMP #### [facility] [address] [place] [address] Dr. Gustavo Han Cholesterol.total/Chol esterol in HDL [Mass ratio] 3.4 {ratio} Normal [facility] Comment on above: Performed By: #### T SH, LIVER, LIPID, BMP #### [facility] [address] [place] [address] Dr. Gustavo Han HDL NORMAL > or = 60 mg/dl - LOW CARDIOVASCULAR RISK <40 mg/dl - HIGH CARDIOVASCULAR RISK Normal [facility] Comment on above: Performed By: #### T SH, LIVER, LIPID, BMP #### [facility] [address] [place] [address] Dr. Gustavo Han LDL CALC NORMAL SEE BELOW Normal [facility] Comment on above: Result Comment: <100 mg/dl OPTIMAL 100 - 129 mg/dl NEAR OR ABOVE OPTIMAL 130 - 159 mg/dl BORDERLINE HIGH 160 - 189 mg/dl HIGH >190 mg/dl VERY HIGH Performed By: #### T SH, LIVER, LIPID, BMP #### [facility] [address] [address] [address] Gustavo Han Triglyceride [Mass/Vol] 145 mg/dL Normal <=150 [facility] Comment on above: Performed By: #### T SH, LIVER, LIPID, BMP #### [facility] [address] [address] [address] Gustavo Han VLDL CALC 29.0 mg/dL Normal [facility] Comment on above: Performed By: #### T SH, LIVER, LIPID, BMP #### [facility] [address] [address] [address] Gustavo Han LIVER PROFILEon 01-16-2023 Albumin [Mass/Vol] 4.0 g/dL Normal 3.4-5.0 [facility] Comment on above: Performed By: #### T SH, LIVER, LIPID, BMP #### [facility] [address] [place] [address] Dr. Gustavo Han Albumin/Globulin [Mass ratio] 1.3 {ratio} Normal [facility] Comment on above: Performed By: #### T SH, LIVER, LIPID, BMP #### [facility] [address] [place] [address] Dr. Gustavo Han ALP [Catalytic activity/Vol] 94 U/L Normal 46-116 [facility] Comment on above: Performed By: #### T SH, LIVER, LIPID, BMP #### [facility] [address] [place] [address] Dr. Gustavo Han ALT [Catalytic activity/Vol] 28 U/L Normal 14-59 [facility] Comment on above: Performed By: #### T SH, LIVER, LIPID, BMP #### [facility] [address] [place] [address] Dr. Gustavo Han AST [Catalytic activity/Vol] 19 U/L Normal 15-37 [facility] Comment on above: Performed By: #### T SH, LIVER, LIPID, BMP #### [facility] [address] [place] [address] Dr. Gustavo Han BILI, CONJUGATED 0.1 mg/dL Normal 0.0-0.2 [facility] Comment on above: Performed By: #### T SH, LIVER, LIPID, BMP #### [facility] [address] [place] [address] Dr. Gustavo Han Bilirubin [Mass/Vol] 0.4 mg/dL Normal 0.2-1.0 [facility] Comment on above: Performed By: #### T SH, LIVER, LIPID, BMP #### [facility] [address] [place] [address] Dr. Gustavo Han Globulin (S) [Mass/Vol] 3.0 g/dL Normal [facility] Comment on above: Performed By: #### T SH, LIVER, LIPID, BMP #### [facility] [address] [place] [address] Dr. Gustavo Han Protein [Mass/Vol] 7.0 g/dL Normal 6.4-8.2 [facility] Comment on above: Performed By: #### T , LIVER, LIPID, BMP #### [facility] [address] [place] [address] Dr. Gustavo Han PROF CHEM 8 (BAS METB)on Anion gap [Moles/Vol] 13.3 mmol/L Normal [facility] Comment on above: Performed By: #### T SH, LIVER, LIPID, BMP #### [facility] [address] [place] [address] Dr. Gustavo Han Calcium [Mass/Vol] 10.2 mg/dL Critically high 8.5-10.1 [facility] Comment on above: Performed By: #### T SH, LIVER, LIPID, BMP #### [facility] [address] [place] [address] Dr. Gustavo Han Chloride [Moles/Vol] 105 mmol/L Normal 98-107 [facility] Comment on above: Performed By: #### T SH, LIVER, LIPID, BMP #### [facility] [address] [place] [address] Dr. Gustavo Han CO2 [Moles/Vol] 29.9 mmol/L Normal 21.0-32.0 [facility] Comment on above: Performed By: #### T SH, LIVER, LIPID, BMP #### [facility] [address] [address] [address] Gustavo Han Creatinine [Mass/Vol] 0.63 mg/dL Normal 0.55-1.02 [facility] Comment on above: Performed By: #### T SH, LIVER, LIPID, BMP #### [facility] [address] [address] [address] Gustavo Han EGFR-AF BHUTANESE >60 Normal >=60 [facility] Comment on above: Performed By: #### T SH, LIVER, LIPID, BMP #### [facility] [address] [place] [address] Dr. Gustavo Han EGFR-NON AF BHUTANESE >60 Normal >=60 [facility] Comment on above: Performed By: #### T SH, LIVER, LIPID, BMP #### [facility] [address] [address] [address] Gustavo Han Glucose [Mass/Vol] 99 mg/dL Normal 74-106 [facility] Comment on above: Performed By: #### T SH, LIVER, LIPID, BMP #### [facility] [address] [place] [address] Dr. Gustavo Han Potassium [Moles/Vol] 4.2 mmol/L Normal 3.5-5.1 [facility] Comment on above: Performed By: #### T SH, LIVER, LIPID, BMP #### [facility] [address] [place] [address] Dr. Gustavo Han Sodium [Moles/Vol] 144 mmol/L Normal 136-145 [facility] Comment on above: Performed By: #### T SH, LIVER, LIPID, BMP #### [facility] [address] [place] [address] Dr. Gustavo Han Urea nitrogen [Mass/Vol] 19.0 mg/dL Critically high 7.0-18.0 [facility] Comment on above: Performed By: #### T SH, LIVER, LIPID, BMP #### [facility] [address] [place], [place] [address] Dr. Gustavo Han Urea nitrogen/Creatinine [Mass ratio] 30.2 mg/mg Normal [facility] Comment on above: Performed By: #### T SH, LIVER, LIPID, BMP #### [facility] [address] [place], [place] [address] Dr. Gustavo Han TSHon 01-16-2023 TSH 0.755 uIU/mL Normal 0.358-3.740 [facility] Comment on above: Performed By: #### T SH, LIVER, LIPID, BMP #### [facility] [address] [place], [place] [address] Dr. Gustavo Han XR LSPINE 2_3 VIEWSon [...] ARNALDO NORIEGA Date: 2022-11-21 12:15 Normal [facility] COVID Quick Testingon 2021 Result Negative [employer] Other Urinalysis - AUTOMATEDon Appearance (U) CLOUDY [employer] Other Bilirubin Ql (U) Negative [employer] Other Color (U) yellow [employer] Other Glucose Ql (U) Negative [employer] Other Hemoglobin Ql (U) SMALL [employer] X[employer] Other Ketones Ql (U) Negative [employer] Other Leukocyte esterase Test strip Ql (U) TRACE [employer] Other Nitrite Ql (U) Negative [employer] Other pH (U) 5.5 [pH] [employer] Other Protein Ql (U) Negative [employer] Other Specific gravity (U) [Rel density] >=1.030 [employer] Other Urobilinogen (U) [Mass/Vol] 0.2 mg/dL [employer] Other Urinalysis - AUTOMATED No rt [employer] Other Urine Cultureon 10-15-2022 Bacteria identified Cx Nom (U) Reason for Exam Urgency of urination Urine Reason for Exam: Urgency of urination : Urine 20,000 colonies/ml mixed bacterial skin contaminants 2 Days PERFORMED BY: [place] [address] PATHOLOGIST ANIMAL CRUELTY INVESTIGATOR HARI BISHOP M.D. [facility] Comment on above: Performed By: #### C UU #### [address] Urine Cultureon 09-04-2021 Urine Culture >100,000 [employer] Other Vital Signs Date Time Vital Sign Value Performing Clinician Facility 05-19-2024 18:05-0400 Body height 157.48 cm [facility] 05-19-2024 18:05-0400 Body mass index (BMI) [Ratio] 27.2 kg/m2 [facility] 05-19-2024 18:05-0400 Body temperature 99.6 [degF] [facility] 05-19-2024 18:05-0400 Body weight 67.64 kg [facility] 05-19-2024 18:05-0400 Diastolic blood pressure 78 mm[Hg] [facility] 05-19-2024 18:05-0400 Heart rate 62 /min [facility] 05-19-2024 18:05-0400 SaO2% (BldA) [Mass fraction] 96 % [facility] 05-19-2024 18:05-0400 Systolic blood pressure 153 mm[Hg] [facility] 10-15-2022 12:50-0500 Body height 157.48 cm Lesley Wise Other [employer] Other 10-15-2022 12:50-0500 Body mass index (BMI) [Ratio] 30.1 kg/m2 Lesley Wise Other [employer] Other 10-15-2022 12:50-0500 Body temperature 98 [degF] Lesley Wise Other [employer] Other 10-15-2022 12:50-0500 Body weight 74.66 kg Lesley Wise Other [employer] Other 10-15-2022 12:50-0500 Diastolic blood pressure 78 mm[Hg] Lesley Wise Other [employer] Other 10-15-2022 12:50-0500 Respiratory rate 18 /min Lesley Wise Other [employer] Other 10-15-2022 12:50-0500 SaO2% (BldA) [Mass fraction] 95 % Lesley Wise Other [employer] Other 10-15-2022 12:50-0500 Systolic blood pressure 142 mm[Hg] Lesley Garnerault Other [employer] Other 09-04-2021 12:50-0400 Body height 157.48 cm Gilda Thomson Other [employer] Other 09-04-2021 12:50-0400 Body mass index (BMI) [Ratio] 30.72 kg/m2 Gilda Ginty Other [employer] Other 09-04-2021 12:50-0400 Body temperature 96.5 [degF] Gilda Ginty Other [employer] Other 09-04-2021 12:50-0400 Body weight 76.2 kg Gilda Ginty Other [employer] Other 09-04-2021 12:50-0400 Diastolic blood pressure 94 mm[Hg] Gilda Ginty Other [employer] Other 09-04-2021 12:50-0400 Respiratory rate 16 /min Gilda Ginty Other [employer] Other 09-04-2021 12:50-0400 SaO2% (BldA) [Mass fraction] 96 % Gilda Ginty Other [employer] Other 09-04-2021 12:50-0400 Systolic blood pressure 143 mm[Hg] Gilda Ginty Other [employer] Other Encounters Encounter Date Encounter Type Care Provider Facility Start: 05-19-2024 End: 05-19-2024 ambulatory [facility] Work Phone: Start: 05-19-2024 End: 05-19-2024 Patient encounter procedure [facility] Work Phone: Start: 01-21-2024 End: 01-21-2024 ambulatory VAN LO Not Available Start: 01-16-2023 End: 01-17-[address] VAN LO Facility: Start: 11-21-2022 End: 11-22-[address] ARNALDO NORIEGA Facility:[facility] Start: 11-14-2022 End: 11-14-[address] VAN LO Facility:[facility] Start: 10-15-2022 End: 10-15-2022 ambulatory Lesley Wise Facility:[facility] Start: 10-15-2022 Office outpatient visit 15 minutes Lesley Wise [facility] Start: 10-15-2022 End: 10-15-2022 ambulatory [employer] Lesley Wise Work Phone: [facility] Work Phone: Start: 10-15-2022 End: 10-15-2022 Departed Referred [employer] Lesley Wise Work Phone: [facility] [place] Start: 09-13-2021 End: 09-13-2021 ambulatory Gilda Ginty Other [employer] Other Start: 09-13-2021 Telephone encounter Gilda Ginty [facility] [address] Start: 09-07-2021 End: 09-07-2021 ambulatory Gilda Ginty Other [employer] Other Start: 09-07-2021 Telephone encounter Gilda Ginty [facility] Start: 09-04-2021 End: 09-04-2021 ambulatory Gilda Ginty Other [facility] Other Start: 09-04-2021 Office outpatient visit 15 minutes Gilda Ginty [facility] Procedures Date Procedure Procedure Detail Performing Clinician Start: 05-19-2024 COVID Antigen (POC) Plan of Treatment Date Care Activity Detail Author Bacteria identified in Urine by Culture [facility] Payers Date Payer Category Payer Self-pay [id number] Private Health Insurance [id number] 1945 Unknown [id number] [id number] 1945 Unknown [id number] [id number] [id number] 1945 Unknown [id number] [id number] [id number] 1945 Unknown [id number] 2.16.84 [id number] Medicare [id number] [id number] Unknown [id number] 2.16.8 [id number] Social History Date Type Detail Facility Sex Assigned At [employer] Other Start: 1945 Sex Assigned At Female [facility] Start: 12-07-2016 Tobacco smoking stat us NHIS Never smoked tobacco (finding) [facility] Clinical Note 11-21-2022 Note Date & [...] authenticated by: ARNALDO NORIEGA Date: 2022-11-21 12:13 [facility] Evaluation note 10-15-2022 Note Date & Type [...] completed to make sure infection has cleared. [employer] Other Evaluation note 09-04-2021 Note Date & [...] understanding and is agreeable to treatment plan [employer] Other Evaluation note Note Date & Type Note Facility Evaluation note No Information [employer] Other Evaluation note Note Date & Type Note Facility Evaluation note No assessment information [facility] Work Phone: History general Narrative - Reported Note Date & Type Note Facility History general Narrative - Reported Type Medical History hypertension Medical History acid reflux Medical History osteoarthritis Medical History Anxiety Medical History Depression Surgical History tonsillectomy and adenoidectomy Surgical History hysterectomy Surgical History appendectomy Surgical History right ankle surgery Surgical History right arm lump removed Hospitalization History See Above [employer] Other History general Narrative - Reported Note Date & Type Note Facility History general Narrative - Reported Type Medical History hypertension Medical History acid reflux Medical History osteoarthritis Medical History Anxiety Medical History Depression Medical History ANEMIC Surgical History tonsillectomy and adenoidectomy Surgical History hysterectomy Surgical History appendectomy Surgical History right ankle surgery Surgical History right arm lump removed Hospitalization History See Above [employer] Other Chief Complaint and Reason for Visit Chief Complaint R39.15 Chief Complaint congestion, fever,Na ricky sent her med for vertigo Advance Directives Advance Directive Response Recorded Date/ Time Advance Directives No September 13, 2021 2:34pm Advance Directive Response Recorded Date/ Time Advance Directives No September 13, 2021 3:34pm Summary Purpose Family History Relationship Condition Age at Onset Recorded Date/T [place] father Unknown family member Unknown mother Unknown Additional Source Comments REASON FOR VISIT (unrecogniz ed section and content) cough, congestionURINARY RAJESH QUENCY, URGENCY Care Teams (unrecognized sec tion and content) Team Status: Inactive Member Role Status Dates RALPH Delgadillo Attending Provider Active Team Status: Active Member Role Status Dates Van Lo MD Primary Care Provider Active Team Status: Inactive Member Role Status Dates Van Lo MD Primary Care Provider Active S tart: May 19, 2024 End: May 19, 2024 Silva Baker APRN Attending Provider Active S tart: May 19, 2024 End: May 19, 2024 Goals (unrecognized section and content) Goals may be documented in a n alternate section INFORMATION SOURCE (unrecogn ized section and content) DATE CREATED AUTHOR 10/18/2022 [facility] DATE CREATED AUTHOR AUTHOR'S ORGANIZ ATION 01/20/2023 [facility] DATE CREATED AUTHOR AUTHOR'S ORGANIZ ATION 01/21/2024 [facility] FOR RECORDS PERTAINING TO PATIENTS WHO ARE [...] BE BASED ON THE PRIMARY CLINICAL RECORDS. [facility] [employer] [facility]. provides no warranty or guarantee of the accuracy or completeness of information in this document.
== END 2024-05-28 20:49 | disposition home or self-care (01) ==
LOC: LAB 20:48
PROVIDERS: PCP Family Medicine; Visit Provider Internal Medicine
DX: R39.9 Unspecified symptoms and signs involving the genitourinary system (principal)
CPT/HCPCS: 87086

== ENCOUNTER 2024-06-04 11:42 | Emergency (ER) | payer MEDICARE, SELFPAY ==
--- OUTSIDE RECORDS SUMMARY | 2024-06-04 11:50 | XMS_ITS ---
Patient Summarization (C-CDA 2.1 CCD) Created on: June 04, 2024 ANNETTE MACIEL : 1945 Sex: Female Author Organization Sample organization Care Team Providers Care Airline Operations Agent Name Role Phone Gilda Thomson Unavailable RALPH Wise Attending Provider [phone] Lesley Wise Unavailable Lesley Wise Attending Unavailable Lesley Wise Admitting Unavailable NADEVELYN, DR VAN Hays Primary Care Unavailable PAY ., DR LUEVANO Attending Unavailable PAY ., DR LUEVANO Admitting Unavailable PAY ., DR LUEVANO Consulting Unavailable NADERER, DR VAN Hays Consulting Unavailable NADERER, DR VAN Hays Attending Unavailable NADERER, DR VAN Hays Admitting Unavailable NADERER, DR VAN Hays Primary Care Unavailable GLENDALE, DR ARNALDO Rodriguez Consulting Unavailable NADERER, DR VAN Hays Attending Unavailable NADERER, DR VAN Hays Admitting Unavailable NADERER, DR VAN Hays Primary Care Unavailable NADERER, DR VAN Hays Consulting Unavailable NADERER, VAN Attending Unavailable SHAIKH REYES Attending Unavailable Allergies Allergy Classification Reported Allergen(s) Allergy Type Date of Onset Reaction(s) Facility (4 sources) diphenhydrAMINE; Translations: [Benadryl] Drug Allergy 01-05-20 17 throat swells [facility] Repository (1 source) diphenhydrAMINE Drug Allergy throat swes [employer] Other Encounters Encounter Date Encounter Type Care Provider Facility Start: 05-22-2024 End: 05-22-2024 ambulatory SHAIKH AMY Not Available Start: 05-19-2024 End: 05-19-2024 ambulatory [facility] Work Phone: Start: 05-19-2024 End: 05-19-2024 Patient encounter procedure [facility] Work Phone: Start: 01-21-2024 End: 01-21-2024 ambulatory VAN LO Not Available Start: 01-16-2023 End: 01-17-[address] VAN LO Facility:[facility] Start: 11-21-2022 End: 11-22-[address] ARNALDO NORIEGA Facility:[facility] Start: 11-14-2022 End: 11-14-[address] VAN LO Facility:[facility] Start: 10-15-2022 End: 10-15-2022 ambulatory Lesley Wise Facility:[facility] Start: 10-15-2022 Office outpatient visit 15 minutes Lesley Billie [facility] Start: 10-15-2022 End: 10-15-2022 ambulatory PACKAGE WRAPPER-C Lesley Wise Work Phone: [facility] Work Phone: Start: 10-15-2022 End: 10-15-2022 Departed Referred PACKAGE WRAPPER-C Lesley Wise Work Phone: [facility] [place] Start: 09-13-2021 End: 09-13-2021 ambulatory Gilda Ginty Other [employer] Other Start: 09-13-2021 Telephone encounter Gilda Ginty [facility] [address] Start: 09-07-2021 End: 09-07-2021 ambulatory Gilda Ginty Other [employer] Other Start: 09-07-2021 Telephone encounter Gilda Ginty [facility] Start: 09-04-2021 End: 09-04-2021 ambulatory Gilda Ginty Other [employer] Other Start: 09-04-2021 Office outpatient visit 15 minutes Gilda Ginty [facility] Medications Current Medications Medication Drug Class(es) Dates Sig (Normalized) Sig (Original) ALPRAZolam 1 mg oral tablet (1 source) Benzodiazepine Start: 05-19-2024 Alprazolam Active MG PO May 19, 2024 12:00am Azithromycin (1 source) Macrolide Antimicrobial Start: 05-19-2024 Azithromycin Active 0 PO .COMPLEX May 19, 2024 12:00am For 250 mg [...] Orally once for 1 day Aug, Active Payers Date Payer Category Payer Self-pay [id number] 1960 Private Health Insurance [id number] 1945 Unknown [id number] 2.16.84 [id number] 1945 Unknown [id number] 2.16.84 [id number] 1945 Unknown [id number] 2.16.84 [id number] 1945 Unknown [id number] 2.16.84 [id number] 1945 Unknown [id number] 2.16.84 [id number] Medicare [id number] 2.16.8 [id number] Unknown [id number] 2.16.8 [id number] Plan of Treatment Date Care Activity Detail Author Bacteria identified in Urine by Culture [facility] Problems Active Problems Problem Classification Problem Date [...] Chronic Other aftercare (1 source) Other termite control servicer (current) drug therapy; Translations: [OTH PRISON CURRENT DRUG THERAPY] Onset: 01-19-2023 Episodic Other [...] Translations: [LOW BACK PAIN, UNSPECIFIED] Onset: 11-14-2022 Procedures Date Procedure Procedure Detail Performing Clinician Start: 05-19-2024 COVID Antigen (POC) Results Test Name Value Interpretation Reference Range Facility No Panel InformationOrdered By: Silva Baker on 05-19-2024 COVID Antigen (POC) [facility] CBC AUTO DIFFon 01-16-2023 BASO # 0.1 103/ul Normal 0.0-0.1 [facility] Comment on above: Performed By: #### C BC #### [facility] [address] [address] [address] Gustavo Han Basophils/100 WBC (Bld) 0.7 % Normal 0.2-2.[address] [facility] Comment on above: Performed By: #### C BC #### [facility] [address] [address] [address] Gustavo Han EO # 0.1 103/ul Normal 0.0-0.[address] [facility] Comment on above: Performed By: #### C BC #### [facility] [address] [place] [address] Dr. Gustavo Han Eosinophils/100 WBC (Bld) 2.0 % Normal 0.9-7.0 [facility] Comment on above: Performed By: #### C BC #### [facility] [address] [place] [address] Dr. Gustavo Han Erythrocyte distribution width (RBC) [Ratio] 13.1 % Normal 11.0-15.0 [facility] Comment on above: Performed By: #### C BC #### [facility] [address] [place] [address] Dr. Gustavo Han Hematocrit (Bld) [Volume fraction] 45.3 % Normal 36.0-48.0 [facility] Comment on above: Performed By: #### C BC #### [facility] [address] [place] [address] Dr. Gustavo Han Hemoglobin (Bld) [Mass/Vol] 15.2 g/dL Normal 12.0-16.[address] [facility] Comment on above: Performed By: #### C BC #### [facility] [address] [place] [address] Dr. Gustavo Han IG # 0.02 10e3/ul Normal 0.00-0.03 [facility] Comment on above: Performed By: #### C BC #### [facility] [address] [place] [address] Dr. Gustavo Han IG % 0.3 % Normal 0.0-0.5 [facility] Comment on above: Performed By: #### C BC #### [facility] [address] [place] [address] Dr. Gustavo Han LYMPH # 2.5 103/ul Normal 1.2-3.[address] [facility] Comment on above: Performed By: #### C BC #### [facility] [address] [place] [address] Dr. Gustavo Han Lymphocytes/100 WBC (Bld) 36.1 % Normal 20.5-60.0 [facility] Comment on above: Performed By: #### C BC #### [facility] [address] [place] [address] Dr. Gustavo Han MANUAL DIFF REQ NO Normal [facility] Comment on above: Performed By: #### C BC #### [facility] [address] [place] [address] Dr. Gustavo Han MCH (RBC) [Entitic mass] 29.7 pg Normal 26.7-34.0 [facility] Comment on above: Performed By: #### C BC #### [facility] [address] [place] [address] Dr. Gustavo Han MCHC (RBC) [Mass/Vol] 33.6 g/dL Normal 29.9-35.[address] [facility] Comment on above: Performed By: #### C BC #### [facility] [address] [place] [address] Dr. Gustavo Han MCV (RBC) [Entitic vol] 88.5 fL Normal 81.0-99.[address] [facility] Comment on above: Performed By: #### C BC #### [facility] [address] [place] [address] Dr. Gustavo Han MONO # 0.5 103/ul Normal 0.3-0.[address] [facility] Comment on above: Performed By: #### C BC #### [facility] [address] [place] [address] Dr. Gustavo Han Monocytes/100 WBC (Bld) 6.8 % Normal 1.7-12.0 [facility] Comment on above: Performed By: #### C BC #### [facility] [address] [place] [address] Dr. Gustavo Han NEUT # 3.8 103/ul Normal 1.4-6.5 [facility] Comment on above: Performed By: #### C BC #### [facility] [address] [place] [address] Dr. Gustavo Han Neutrophils/100 WBC (Bld) 54.1 % Normal 43.0-75.0 [facility] Comment on above: Performed By: #### C BC #### [facility] [address] [place] [address] Dr. Gustavo Han Platelet mean volume (Bld) [Entitic vol] 10.6 fL Normal 9.5-13.5 [facility] Comment on above: Performed By: #### C BC #### [facility] [address] [place] [address] Dr. Gustavo Han PLT 230 103/ul Normal 150-450 [facility] Comment on above: Performed By: #### C BC #### [facility] [address] [place] [address] Dr. Gustavo Han RBC 5.12 106/ul Normal 4.20-5.40 [facility] Comment on above: Performed By: #### C BC #### [facility] [address] [place] [address] Dr. Gustavo Han WBC 7.0 103/ul Normal 4.0-11.0 [facility] Comment on above: Performed By: #### C BC #### [facility] [address] [place] [address] Dr. Gustavo Han LIPID PROFILEon 01-16-2023 CHOL-HDL RATIO NORM SEE BELOW Normal [facility] Comment on above: Result Comment: 3.3 - 4.4 LOW RISK 4.4 - 7.1 AVERAGE RISK 7.1 - 11.0 MODERATE RISK >11.0 HIGH RISK Performed By: #### T SH, LIVER, LIPID, BMP #### [facility] [address] [address] [address] Gustavo Han Cholesterol [Mass/Vol] 212 mg/dL Critically high <=[address] [facility] Comment on above: Performed By: #### T SH, LIVER, LIPID, BMP #### [facility] [address] [address] [address] Gustavo Han Cholesterol in HDL [Mass/Vol] 63 mg/dL Critically high 40-[address] [facility] Comment on above: Performed By: #### T SH, LIVER, LIPID, BMP #### [facility] [address] [address] [address] Gustavo Han Cholesterol in LDL [Mass/Vol] 120.0 mg/dL Normal [facility] Comment on above: Performed By: #### T SH, LIVER, LIPID, BMP #### [facility] [address] [address] [address] Gustavo Han Cholesterol.total/Chol esterol in HDL [Mass ratio] 3.4 {ratio} Normal [facility] Comment on above: Performed By: #### T SH, LIVER, LIPID, BMP #### [facility] [address] [address] [address] Gustavo Han HDL NORMAL > or = 60 mg/dl - LOW CARDIOVASCULAR RISK <40 mg/dl - HIGH CARDIOVASCULAR RISK Normal [facility] Comment on above: Performed By: #### T SH, LIVER, LIPID, BMP #### [facility] [address] [address] [address] Gustavo Han LDL CALC NORMAL SEE BELOW Normal [facility] Comment on above: Result Comment: <100 mg/dl OPTIMAL 100 - 129 mg/dl NEAR OR ABOVE OPTIMAL 130 - 159 mg/dl BORDERLINE HIGH 160 - 189 mg/dl HIGH >190 mg/dl VERY HIGH Performed By: #### T SH, LIVER, LIPID, BMP #### [facility] [address] [address] [address] Gustavo Han Triglyceride [Mass/Vol] 145 mg/dL Normal <=[address] [facility] Comment on above: Performed By: #### T SH, LIVER, LIPID, BMP #### [facility] [address] [address] [address] Gustavo Han VLDL CALC 29.0 mg/dL Normal [facility] Comment on above: Performed By: #### T SH, LIVER, LIPID, BMP #### [facility] [address] [address] [address] Gustavo Han LIVER PROFILEon 01-16-2023 Albumin [Mass/Vol] 4.0 g/dL Normal 3.4-5.0 [facility] Comment on above: Performed By: #### T SH, LIVER, LIPID, BMP #### [facility] [address] [address] [address] Gustavo Han Albumin/Globulin [Mass ratio] 1.3 {ratio} Normal [facility] Comment on above: Performed By: #### T SH, LIVER, LIPID, BMP #### [facility] [address] [place] [address] Dr. Gustavo Han ALP [Catalytic activity/Vol] 94 U/L Normal 46-116 [facility] Comment on above: Performed By: #### T SH, LIVER, LIPID, BMP #### [facility] [address] [place] [address] Dr. Gustavo Han ALT [Catalytic activity/Vol] 28 U/L Normal 14-59 [facility] Comment on above: Performed By: #### T SH, LIVER, LIPID, BMP #### [facility] [address] [place] [address] Dr. Gustavo Han AST [Catalytic activity/Vol] 19 U/L Normal 15-37 [facility] Comment on above: Performed By: #### T SH, LIVER, LIPID, BMP #### [facility] [address] [place] [address] Dr. Gustavo Han BILI, CONJUGATED 0.1 mg/dL Normal 0.0-0.2 [facility] Comment on above: Performed By: #### T SH, LIVER, LIPID, BMP #### [facility] [address] [place] [address] Dr. Gustavo Han Bilirubin [Mass/Vol] 0.4 mg/dL Normal 0.2-1.0 [facility] Comment on above: Performed By: #### T SH, LIVER, LIPID, BMP #### [facility] [address] [address] [address] Gustavo Han Globulin (S) [Mass/Vol] 3.0 g/dL Normal [facility] Comment on above: Performed By: #### T SH, LIVER, LIPID, BMP #### [facility] [address] [address] [address] Gustavo Han Protein [Mass/Vol] 7.0 g/dL Normal 6.4-8.2 [facility] Comment on above: Performed By: #### T SH, LIVER, LIPID, BMP #### [facility] [address] [place] [address] Dr. Gustavo Han PROF CHEM 8 (BAS METB)on Anion gap [Moles/Vol] 13.3 mmol/L Normal [facility] Comment on above: Performed By: #### T SH, LIVER, LIPID, BMP #### [facility] [address] [place] [address] Dr. Gustavo Han Calcium [Mass/Vol] 10.2 mg/dL Critically high 8.5-10.1 [facility] Comment on above: Performed By: #### T SH, LIVER, LIPID, BMP #### [facility] [address] [place] [address] Dr. Gustavo Han Chloride [Moles/Vol] 105 mmol/L Normal 98-107 [facility] Comment on above: Performed By: #### T SH, LIVER, LIPID, BMP #### [facility] [address] [place] [address] Dr. Gustavo Han CO2 [Moles/Vol] 29.9 mmol/L Normal 21.0-32.0 [facility] Comment on above: Performed By: #### T SH, LIVER, LIPID, BMP #### [facility] [address] [place] [address] Dr. Gustavo Han Creatinine [Mass/Vol] 0.63 mg/dL Normal 0.55-1.02 [facility] Comment on above: Performed By: #### T SH, LIVER, LIPID, BMP #### [facility] [address] [address] [address] Gustavo Han EGFR-AF BELIZEAN >60 Normal >=60 [facility] Comment on above: Performed By: #### T SH, LIVER, LIPID, BMP #### [facility] [address] [address] [address] Gustavo Han EGFR-NON AF BELIZEAN >60 Normal >=60 [facility] Comment on above: Performed By: #### T SH, LIVER, LIPID, BMP #### [facility] [address] [address] [address] Gustavo Han Glucose [Mass/Vol] 99 mg/dL Normal 74-106 [facility] Comment on above: Performed By: #### T SH, LIVER, LIPID, BMP #### [facility] [address] [address] [address] Gustavo Han Potassium [Moles/Vol] 4.2 mmol/L Normal 3.5-5.1 [facility] Comment on above: Performed By: #### T SH, LIVER, LIPID, BMP #### [facility] [address] [address] [address] Gustavo Han Sodium [Moles/Vol] 144 mmol/L Normal 136-145 [facility] Comment on above: Performed By: #### T SH, LIVER, LIPID, BMP #### [facility] [address] [address] [address] Gustavo Han Urea nitrogen [Mass/Vol] 19.0 mg/dL Critically high 7.0-18.0 [facility] Comment on above: Performed By: #### T SH, LIVER, LIPID, BMP #### [facility] [address] [address] [address] Gustavo Han Urea nitrogen/Creatinine [Mass ratio] 30.2 mg/mg Normal [facility] Comment on above: Performed By: #### T SH, LIVER, LIPID, BMP #### [facility] [address] [address] [address] Gustavo Han TSHon 01-16-2023 TSH 0.755 uIU/mL Normal 0.358-3.740 [facility] Comment on above: Performed By: #### T SH, LIVER, LIPID, BMP #### [facility] [address] [place] [address] Dr. Gustavo Han XR LSPINE 2_3 VIEWSon [...] ARNALDO NORIEGA Date: 2022-11-21 12:15 Normal [facility] COVID Quick Testingon 2021 Result Negative [employer] Other Urinalysis - AUTOMATEDon Appearance (U) CLOUDY [employer] Other Bilirubin Ql (U) Negative [employer] Other Color (U) yellow [employer] Other Glucose Ql (U) Negative [employer] Other Hemoglobin Ql (U) SMALL [employer] Other Ketones Ql (U) Negative [employer] Other Leukocyte esterase Test strip Ql (U) TRACE [employer] Other Nitrite Ql (U) Negative [employer] Other pH (U) 5.5 [pH] [employer] Other Protein Ql (U) Negative [employer] Other Specific gravity (U) [Rel density] >=1.030 [employer] Other Urobilinogen (U) [Mass/Vol] 0.2 mg/dL [facility] [employer] Other Urinalysis - AUTOMATED [facility] [employer] Other Urine Cultureon 10-15-2022 Bacteria identified Cx Nom (U) Reason for Exam Urgency of urination Urine Reason for Exam: Urgency of urination : Urine 20,000 colonies/ml mixed bacterial skin contaminants 2 Days PERFORMED BY: [place] [address] PATHOLOGIST EXTERIOR DOOR INSTALLER HARI BISHOP M.D. Normal [facility] Comment on above: Performed By: #### C UU #### [address] Urine Cultureon 09-04-2021 Urine Culture >100,000 [facility] [employer] Other Social History Date Type Detail Facility Start: 12-07-2016 Tobacco smoking stat us KYIS Never smoked tobacco (finding) [facility] Start: 1945 Sex Assigned At Female F [facility] Sex Assigned At [facility] [employer] Other Vital Signs Date Time Vital Sign Value Performing Clinician Facility 05-19-2024 18:05-0400 Body height 157.48 cm [facility] 05-19-2024 18:05-0400 Body mass index (BMI) [Ratio] 27.2 kg/m2 [facility] 05-19-2024 18:05-0400 Body temperature 99.6 [degF] [facility] 05-19-2024 18:05-0400 Body weight 67.64 kg [facility] 05-19-2024 18:05-0400 Diastolic blood pressure 78 mm[Hg] [facility] 05-19-2024 18:05-0400 Heart rate 62 /min [facility] 05-19-2024 18:05-0400 SaO2% (BldA) [Mass fraction] 96 % [facility] 05-19-2024 18:05-0400 Systolic blood pressure 153 mm[Hg] [facility] 10-15-2022 12:50-0500 Body height 157.48 cm Lesley Wise Other [employer] Other 10-15-2022 12:50-0500 Body mass index (BMI) [Ratio] 30.1 kg/m2 Lesley Wise Other [employer] Other 10-15-2022 12:50-0500 Body temperature 98 [degF] Lesley Wise Other [employer] Other 10-15-2022 12:50-0500 Body weight 74.66 kg Lesley Wise Other [employer] Other 10-15-2022 12:50-0500 Diastolic blood pressure 78 mm[Hg] Lesley Wise Other [employer] Other 10-15-2022 12:50-0500 Respiratory rate 18 /min Lesley Wise Other [employer] Other 10-15-2022 12:50-0500 SaO2% (BldA) [Mass fraction] 95 % Lesley Wise Other [employer] Other 10-15-2022 12:50-0500 Systolic blood pressure 142 mm[Hg] Lesley Wise Other [employer] Other 09-04-2021 12:50-0400 Body height 157.48 cm Gilda Ginty Other [employer] Other 09-04-2021 12:50-0400 Body mass index (BMI) [Ratio] 30.72 kg/m2 Gilda Ginty Other [employer] Other 09-04-2021 12:50-0400 Body temperature 96.5 [degF] Gilda Ginty Other [employer] Other 09-04-2021 12:50-0400 Body weight 76.2 kg Gilda Ginty Other [employer] Other 09-04-2021 12:50-0400 Diastolic blood pressure 94 mm[Hg] Gilda Ginty Other [employer] Other 09-04-2021 12:50-0400 Respiratory rate 16 /min Gilda Ginty Other [employer] Other 09-04-2021 12:50-0400 SaO2% (BldA) [Mass fraction] 96 % Gilda Ginty Other [employer] Other 09-04-2021 12:50-0400 Systolic blood pressure 143 mm[Hg] Gilda Ginty Other [employer] Other Clinical Note 11-21-2022 Note Date & Type [...] authenticated by: ARNALDO NORIEGA Date: 2022-11-21 12:13 [facility] Evaluation note 10-15-2022 Note Date & [...] completed to make sure infection has cleared. [employer] Other Evaluation note 09-04-2021 Note Date & [...] understanding and is agreeable to treatment plan [employer] Other Evaluation note Note Date & Type Note Facility Evaluation note No Information [employer] Other Evaluation note Note Date & Type Note Facility Evaluation note No assessment information [facility] Work Phone: History general Narrative - Reported Note Date & Type Note Facility History general Narrative - Reported Type Medical History hypertension Medical History acid reflux Medical History osteoarthritis Medical History Anxiety Medical History Depression Surgical History tonsillectomy and adenoidectomy Surgical History hysterectomy Surgical History appendectomy Surgical History right ankle surgery Surgical History right arm lump removed Hospitalization History See Above [employer] Other History general Narrative - Reported Note Date & Type Note Facility History general Narrative - Reported Type Medical History hypertension Medical History acid reflux Medical History osteoarthritis Medical History Anxiety Medical History Depression Medical History ANEMIC Surgical History tonsillectomy and adenoidectomy Surgical History hysterectomy Surgical History appendectomy Surgical History right ankle surgery Surgical History right arm lump removed Hospitalization History See Above [employer] Other Chief Complaint and Reason for Visit Chief Complaint R39.15 Chief Complaint congestion, fever,Na ricky sent her med for vertigo Advance Directives No Advanced Directives Records Found Advance Directive Response Recorded Date/ Time Advance Directives No September 13, 2021 2:34pm Advance Directive Response Recorded Date/ Time Advance Directives No September 13, 2021 3:34pm Summary Purpose Family History No Family History Records Found Relationship Condition Age at Onset Recorded Date/T [...] section and content) DATE CREATED AUTHOR 10/18/2022 [facility] DATE CREATED AUTHOR AUTHOR'S ORGANIZ ATION 01/20/2023 [facility] DATE CREATED AUTHOR AUTHOR'S ORGANIZ ATION 05/28/2024 [facility] RECORDS PERTAINING TO PATIENTS WHO [...] BE BASED ON THE PRIMARY CLINICAL RECORDS. [facility]. provides no warranty or guarantee of the accuracy or completeness of information in this document.
[2024-06-04 11:56] VITALS: BP 150/96; PULSE 74; TEMP 36.9; O2SAT 97; BMI 28.5
[2024-06-04 12:24] VITALS: PULSE 78; O2SAT 96
--- NOTE | 2024-06-04 12:40 | ED.GENADUL1 ---
HPI HPI - General Adult General Chief complaint: Allergic Reaction Stated complaint: RASH ON FACE Time Seen by Provider: 06/04/24 12:23 Source: patient Mode of arrival: walk-in Limitations: no limitations History of Present Illness HPI narrative: Patient presents ED complaint of rash on her face and lip swelling. Patient states she started a new antibiotic yesterday, Levaquin for acute bronchitis. Patient states when she woke up today she had some areas of swelling and itching on her face and her lips were swollen. She denies any pain. She states she has been dealing with a cough and sickness for the past couple of weeks. She was on steroids a couple of weeks ago. She was then started on a new antibiotic yesterday for the bronchitis and then woke up with the itchy rash and swollen lips. She denies any increased shortness of breath, there is no wheezing, no difficulty speaking or handling secretions. Related Data Home Medications ?Medication ?Instructions ?Recorded ?Confirmed alprazolam 0.5 mg tablet 0.5 mg PO PRN PRN anxiety 06/04/24 06/04/24 lisinopril 5 mg tablet 5 mg PO DAILY 06/04/24 06/04/24 meclizine 25 mg tablet 25 mg PO DAILY 06/04/24 06/04/24 omeprazole 20 mg capsule,delayed 20 mg PO DAILY 06/04/24 06/04/24 release Previous Rx's ?Medication ?Instructions ?Recorded methylprednisolone 4 mg tablets in See Rx Instructions .Route 06/04/24 a dose pack (Medrol (Aristeo)) .COMPLEX #21 ea Allergies Allergy/AdvReac Type Severity Reaction Status Date / Time diphenhydramine Allergy Severe Anaphylaxis Verified 05/19/24 19:18 [From Benadryl] Opioid HPI Opioid Management Most Recent Opioid Data: No Data to Display Review of Systems ROS Status of ROS 10 or more systems reviewed and unremarkable except as noted in history and below Exam Narrative Exam Narrative: General: alert, no acute distress Cardiovascular: regular rate and rhythm, normal peripheral perfusion. Respiratory: Lungs CTA, respirations non labored. Extremities: no deformity, no trauma. Neurological: oriented x 4, LOC appropriate for age. Patient has some areas of erythema and induration on the left side of the face. Lips are swollen. No tongue swelling no posterior pharynx swelling. No wheezing no stridor. Constitutional Vital Signs, click to edit/add: Last Vital Signs Temp 98.4 F 06/04/24 11:56 Pulse 73 06/04/24 13:49 Resp 18 06/04/24 14:05 BP 138/90 06/04/24 13:49 Pulse Ox 98 06/04/24 14:05 O2 Del Method Room Air 06/04/24 14:05 Course Vital Signs Vital signs: Vital Signs Temperature 98.4 F 06/04/24 11:56 Pulse Rate 74 06/04/24 11:56 Respiratory Rate 18 06/04/24 11:56 Blood Pressure 150/96 H 06/04/24 11:56 Pulse Oximetry 97 06/04/24 11:56 Oxygen Delivery Method Room Air 06/04/24 11:56 Temperature 98.4 F 06/04/24 11:56 Pulse Rate 73 06/04/24 13:49 Respiratory Rate 18 06/04/24 14:05 Blood Pressure 138/90 06/04/24 13:49 Pulse Oximetry 98 06/04/24 14:05 Oxygen Delivery Method Room Air 06/04/24 14:05 Medical Decision Making MDM Narrative Medical decision making narrative: Patient was given IV Decadron and IV Pepcid. She is feeling much better after being monitored here in ED. Her lip swelling has greatly improved. She does still have some [place] area like reaction on the left side of the face but the lip swelling is much improved. Patient will be sent home with prednisone taper. Return to ED if worsening symptoms. Discontinue the Levaquin at home. Follow-up with your family doctor, return to ED if worsening symptoms. Differential Diagnosis Differential Diagnosis: Allergic reaction, shingles, rash Medical Records Medical records reviewed: Yes I reviewed the patient's medical records Lab Data Lab results reviewed: Yes I reviewed the patient's lab results Labs: Lab Results 06/04/24 Range/Units 13:00 WBC 6.3 (4.0-11.0) 10^3/uL RBC 5.00 (4.20-5.40) 10^6/uL Hgb 14.9 (12.0-16.0) g/dL Hct 44.2 (36.0-48.0) % MCV 88.4 (81.0-99.0) fL MCH 29.8 (26.7-34.0) pg MCHC 33.7 (29.9-35.2) g/dL RDW 12.7 (11.0-15.0) % Plt Count 309 (150-450) 10^3/uL MPV 10.5 (9.5-13.5) fL Neut % (Auto) 57.4 (43.0-75.0) % Lymph % (Auto) 33.4 (20.5-60.0) % Lagrange % (Auto) 6.8 (1.7-12.0) % Eos % (Auto) 0.6 L (0.9-7.0) % Baso % (Auto) 1.3 (0.2-2.0) % Neut # (Auto) 3.6 (1.4-6.5) 10^3/uL Lymph # (Auto) 2.1 (1.2-3.8) 10^3/uL [place] # (Auto) 0.4 (0.3-0.8) 10^3/uL Eos # (Auto) 0.0 (0.0-0.7) 10^3/uL Baso # (Auto) 0.1 (0.0-0.1) 10^3/uL Abs Immat Gran (auto) 0.03 (0.00-0.03) 10^3/uL Imm/Tot Granulo (auto) 0.5 (0.0-0.5) % Sodium 140 (136-145) mmol/L Potassium 3.9 (3.5-5.1) mmol/L Chloride 104 (98-107) mmol/L Carbon Dioxide 28.0 (21.0-32.0) mmol/L Anion Gap 11.9 BUN 14.0 (7.0-18.0) mg/dL Creatinine 0.73 (0.55-1.02) mg/dL Est GFR ( Amer) >60 (>=60) Est GFR (Non-Af Amer) >60 (>=60) BUN/Creatinine Ratio 19.2 Glucose 110 H (74-106) mg/dL Calcium 9.8 (8.5-10.1) mg/dL Total Bilirubin 0.4 (0.2-1.0) mg/dL AST 14 L (15-37) U/L ALT 25 (14-59) U/L Alkaline Phosphatase 100 (46-116) U/L Total Protein 7.0 (6.4-8.2) g/dL Albumin 3.5 (3.4-5.0) g/dL Globulin 3.5 g/dL Albumin/Globulin Ratio 1.0 Discharge Plan Discharge Stand Alone Forms: Portal Instructions Chief Complaint: Allergic Reaction Clinical Impression: Allergic reaction Patient Disposition: Home, Self-Care Time of Disposition Decision: 13:50 Mode of Transportation: Private Vehicle Prescriptions / Home Meds: New methylprednisolone [Medrol (Aristeo)] 4 mg tablets,dose pack See Rx Instructions .ROUTE .COMPLEX Qty: 21 0RF Rx Instructions: medrol dosepak disp one use as directed No Action alprazolam 0.5 mg tablet 0.5 mg PO PRN PRN (Reason: anxiety) lisinopril 5 mg tablet 5 mg PO DAILY meclizine 25 mg tablet 25 mg PO DAILY omeprazole 20 mg capsule,delayed release(DR/EC) 20 mg PO DAILY Print Language: Luxembourgish Instructions: Antibiotic Medication Allergy (ED) Referrals: Van Grimm MD [Primary Care Provider] - 1 week Discharge Date/Time: 06/04/24 14:06
[2024-06-04 13:09] LABS: Basophils Absolute Auto 0.1 10^3/uL (0.0-0.1); Basophils Percent Auto 1.3 % (0.2-2.0); Eosinophils Percent Auto 0.6 % (0.9-7.0); Hematocrit 44.2 % (36.0-48.0); Hemoglobin 14.9 g/dL (12.0-16.0); Immature Granulocytes Abs Auto 0.03 10^3/uL (0.00-0.03); Immature Granulocytes Pct Auto 0.5 % (0.0-0.5); Lymphocytes Absolute Auto 2.1 10^3/uL (1.2-3.8); Lymphocytes Percent Auto 33.4 % (20.5-60.0); Mean Corpuscular HGB Conc 33.7 g/dL (29.9-35.2); Mean Corpuscular Hemoglobin 29.8 pg (26.7-34.0); Mean Corpuscular Volume 88.4 fL (81.0-99.0); Mean Platelet Volume 10.5 fL (9.5-13.5); Monocytes Absolute Auto 0.4 10^3/uL (0.3-0.8); Monocytes Percent Auto 6.8 % (1.7-12.0); Neutrophils Absolute Auto 3.6 10^3/uL (1.4-6.5); Neutrophils Percent Auto 57.4 % (43.0-75.0); Platelet Count 309 10^3/uL (150-450); Red Cell Distribution Width 12.7 % (11.0-15.0); White Blood Count 6.3 10^3/uL (4.0-11.0)
[2024-06-04] MEDS: FAMOTIDINE/PF 20 MG/2 ML VIAL IV (13:10)
[2024-06-04] MEDS: DEXAMETHASONE SOD PHOS 10 MG/ML VIAL IV (13:10)
[2024-06-04 13:25] LABS: Alanine Aminotransferase 25 U/L (14-59); Albumin Level 3.5 g/dL (3.4-5.0); Alkaline Phosphatase 100 U/L (46-116); Anion Gap 11.9; Aspartate Amino Transferase 14 U/L (15-37); BUN Creatinine Ratio 19.2; Bilirubin Total 0.4 mg/dL (0.2-1.0); Calcium 9.8 mg/dL (8.5-10.1); Chloride 104 mmol/L (98-107); Estimated GFR (African America >60 (>=60); Estimated GFR (Non-African Ame >60 (>=60); Globulin 3.5 g/dL; Glucose 110 mg/dL (74-106); Potassium 3.9 mmol/L (3.5-5.1); Sodium 140 mmol/L (136-145)
[2024-06-04 13:49] VITALS: BP 138/90; PULSE 73; O2SAT 97
[2024-06-04 14:05] VITALS: O2SAT 98
== END 2024-06-04 14:06 | disposition home or self-care (01) ==
PROVIDERS: Emergency Provider Emergency Medicine; PCP Family Medicine
DX: L27.1 Localized skin eruption due to drugs and medicaments taken internally (principal); T36.8X5A Adverse effect of other systemic antibiotics, initial encounter
CPT/HCPCS: 36415; 80053; 85025; 96374; 96375; 99284; J1100

== ENCOUNTER 2025-10-14 13:16 | Outpatient (OUT) | payer MEDICARE, SELFPAY ==
--- OUTSIDE RECORDS SUMMARY | 2025-10-14 13:23 | XMS_ITS | Clinical Summary ---
Author Organization [facility] Healthcare Address [address] [place] [address] Care Team Providers Care Supervisor Wrapping Room Name Role Phone Van Grimm MD Primary Care Provider [phone] Van Grimm MD Unavailable Allergies Active AllergyReactionsCriticalityNoted DateCommentsDiphenhydramineSwelling Icyndg9112/17/2023 Other Reaction(s): Tongue swells EomcldegenAbikj72/11/2024 TINGLING,NUMBNESS IN LIPS Medications MedicationSigDispense QuantityRefillsLast FilledStart DateEnd DateStatus meclizine (Antivert) 25 MG tablet Indications:VertigoTake 1 tablet (25 mg) by mouth 4 (four) times a day as needed for dizziness 60 tablet 4Active omeprazole (PriLOSEC) [address] capsule Indications:Gastroesophageal reflux disease without esophagitisTAKE 1 CAPSULE BY MOUTH TWICE A DAY 180 capsule 4Active lisinopril 5 MG tablet Indications:Essential hypertension, benignTake 1 tablet (5 mg) by mouth Daily 90 tablet 4Active albuterol HFA 90 mcg/act inhaler Indications:Chronic obstructive pulmonary disease, unspecified COPD type (HCC) Inhale 2 puffs every 4 (four) hours if needed for wheezing 8 g 5Active ALPRAZolam (Xanax) 0.5 MG tablet Indications:Generalized anxiety disorderTake 1 tablet (0.5 mg) by mouth 3 (three) times a day as needed for anxiety 90 tablet 5Active Active Problems ProblemNoted DateDiagnosed DateMedicare annual wellness visit, subsequent 08/27/2024 Assessment & Plan (08/27/2024 9:02 AM EDT): Reviewed labs. Discussed proper diet and regular aerobic exercise. Need aerobic exercise 5-6 days aweek for 30 minutes at a time. Smaller portions and limit total calories. Tetanus every 10 years. Advised not to smoke. Discussed daily Aspirin therapy. Essential hypertension, jaopgk1401/21/2024 Assessment & Plan (05/14/2025 3:11 PM EDT): BP controlled and monitor PRN. Assessment & Plan (07/28/2024 8:42 AM EDT): BP controlled and monitor PRN. Assessment & Plan (01/21/2024 8:56 AM EDT): BP controlled and monitor PRN. Equyyyddnpiv88/11/2024Generalized anxiety cyqbxdea78/11/2024 Assessment & Plan (05/14/2025 3:12 PM EDT): Symptoms controlled with xanax and use PRN. Assessment & Plan (07/28/2024 8:42 AM EDT): Symptoms controlled with xanax and use PRN. Assessment & Plan (01/21/2024 8:56 AM EDT): Symptoms controlled with xanax and use PRN. Gastroesophageal reflux ercveuo2701/21/2024 Assessment & Plan (05/14/2025 3:12 PM EDT): Symptoms controlled with omeprazole and continue. Assessment & Plan (07/28/2024 8:42 AM EDT): Symptoms controlled with omeprazole and continue. Assessment & Plan (01/21/2024 8:56 AM EDT): Symptoms controlled with omeprazole and continue. Left hip pain01/21/2024Lumbar yumsfoecwrp09/11/2024 Assessment & Plan (05/14/2025 3:12 PM EDT): Mild pain but tolerable with OTC. Increase activity and walk regularly. Assessment & Plan (07/28/2024 8:42 AM EDT): Mild pain but tolerable with OTC. Increase activity and walk regularly. Assessment & Plan (01/21/2024 8:57 AM EDT): Mild pain but tolerable with OTC. Increase activity and walk regularly. Allergic rhinitis due to igadpl3001/21/2024 Assessment & Plan (01/21/2024 8:56 AM EDT): Symptoms controlled with medication and continue. COPD (chronic obstructive pulmonary disease)01/21/2024 Assessment & Plan (05/14/2025 3:11 PM EDT): Occasional symptoms but tolerable and use albuterol PRN. Assessment & Plan (07/28/2024 8:42 AM EDT): Occasional symptoms but tolerable and use albuterol PRN. Assessment & Plan (01/21/2024 8:56 AM EDT): Occasional symptoms but tolerable and use albuterol PRN. Encounter for long-term current use of kzsdpdshpo17/11/2024Obesity (BMI 30-39.9) 01/21/2024rthritis of foot, left12/17/2023 Resolved Problems ProblemNoted DateDiagnosed DateResolved DateAcute bronchitis due to other specified cmfaphnoz83/ Assessment & Plan (06/03/2024 4:59 PM EDT): Take antibiotics for 7 days. Use albuterol PRN. Use sudafed or other decongestants as needed. Use robitussin or robittussin-DM for cough. Use afrin for congestion but no longer than 3 days. Use mucinex to bring up phlegm. Use motrin or tylenol for fever, aches or pains. Increase fluid intake and rest. Should improve over next 5-7 days and if no better or worse call office. UTI cususlgx77/URTI (acute upper respiratory infection) /cute sinusitis, drvlrduaczk81/11/202403/hronic depressive fzajakvh88/Encounter for long-term current use of high risk zjijkdtngy97 Immunizations ImmunizationAdministration DatesNext DueInfluenza, High Dose Seasonal, Preservative Free09/12/2019,08/19/2018Influenza, High-dose Seasonal, Quadrivalent, Preservative Free09/05/2023,10/26/2022Influenza, Seasonal, Quadrivalent, Jhibazhtxv25/14/2021Influenza, injectable, MDCK, preservative free, yescfpphiryc04/15/2017Influenza, injectable, quadrivalent, preservative free08/31/2017Pneumococcal Conjugate PCV Family History RelationNameStatusCommentsFatherDeceased Social History Tobacco UseTypesPacks/DayYears UsedDateSmoking Tobacco: FormerCigarettesPassive Smoke Exposure: PastSmokeless Tobacco: Never Tobacco Cessation:Counseling Given: No Alcohol UseStandard Drinks/WeekCommentsNever0 (1 standard drink = 0.6 oz pure alcohol)PHQ-2AnswerDate RecordedPatient Health Questionnaire-2 Cypwc052 CommentsUnknownSex and Gender InformationValueDate RecordedSex Assigned at BirthNot on fileLegal ZkjBaliij12/15/2023 6:47 PM EDTGender IdentityNot on fileSexual OrientationNot on file Last Filed Vital Signs Vital SignReadingTime TakenCommentsBlood Mlzvxpwi500/8407 2:45 PM EDT Scmym175905/14/2025 2:45 PM JHDLejhqiyczgu10.2 ??C (97.1 ??F)05/14/2025 2:45 PM EDTRespiratory Lzmj578205/14/2025 2:45 PM EDTOxygen Vxnsilihhs85%05/14/2025 2:45 PM EDTInhaled Oxygen Concentration--Ratkii35.8 kg (165 lb)05/14/2025 2:45 PM EDT Dvluwx400.5 cm (5' 2 )05/14/2025 2:45 PM EDTBody Mass Index30.18005/14/2025 2:45 PM EDT Plan of Treatment Health MaintenanceDue DateLast DoneCommentsMedicare Annual Wellness (AWV) 1944OVID-19 Vaccine ( season)/03/2021, 02/10/2021, 01/13/2021Influenza Vaccine (#1)/, 10/26/2022, 08/25/2021, Additional history existsPneumococcal Vaccine: 65+ MrhcrKvbyxvvsm70/15/2022, 03/31/2019, 12/15/2016 Insurance Care Teams Team MemberRelationshipSpecialtyStart DateEnd Date Van Grimm MD PCP - GeneralFamily Medicine07/16/23 Van Grimm MD [address] [place] [address] PCP - [place]11/12/24
--- OUTSIDE RECORDS SUMMARY | 2025-10-14 13:23 | XMS_ITS | Clinical Summary ---
Author Organization [facility] Address [facility] [id number] [address] [place] [address] Care Team Providers Care Shear Helper Name Role Phone Van Grimm MD Primary Care Provider [phone] Allergies Active AllergyReactionsCriticalityNoted DateCommentsDiphenhydramine HclSwelling 07/12/2017 Medications MedicationSigDispense QuantityRefillsLast FilledStart DateEnd DateStatus lisinopril (PRINIVIL,ZESTRIL) 5 mg tablet Take 5 mg by mouth daily.Active omeprazole (PriLOSEC) 20 mg capsule Take 40 mg by mouth daily.Active dextromethorphan-guaiFENesin (ROBITUSSIN-DM) 10-100 mg/5 mL liquid 08/01/2019Active albuterol (PROVENTIL HFA;VENTOLIN HFA) 90 mcg/actuation inhaler Inhale 2 puffs every 6 (six) hours as needed. Active ferrous sulfate 325 (65 FE) mg tablet Take 1 tablet by mouth 2 (two) times a day.Active fluticasone propionate (FLONASE) 50 mcg/actuation nasal spray Intill 1 spray IN EACH NOSTRIL EVERY [id number] sertraline (ZOLOFT) 50 mg tablet 08/12/2019Active Active Problems ProblemNoted DateDiagnosed DateEssential ochezqmuqqbd07/31/2017Gastroesophageal reflux disease without xnnppdonswc96/31/2017 Family History Medical HistoryRelationNameCommentsHeart diseaseFatherRelationNameStatusComments FatherDeceasedMotherDeceased Social History Tobacco UseTypesPacks/DayYears UsedDateSmoking Tobacco: FormerCigarettesQuit: 1994Smokeless Tobacco: NeverAlcohol UseStandard Drinks/WeekCommentsNo0 (1 standard drink = 0.6 oz pure alcohol)ChildcareAnswerDate RecordedChildcare Lifgevc4104/23/2019EmploymentAnswerDate JxgetmonSalswvmoazRkqsuyg36/12/2019Purpose - LifeAnswerDate RecordedPurpose and direction in pligDdfecfo34/11/2021 CommentsNoSex and Gender InformationValueDate RecordedSex Assigned at BirthNot on fileLegal RixJgnygf44/06/2015 12:03 PM EDTGender IdentityNot on fileSexual OrientationNot on file Last Filed Vital Signs Vital SignReadingTime TakenCommentsBlood Ualpcqba044/8209/10/2019 9:19 AM EDT Ynadq430308/26/2019 11:45 AM BFGMsjxftsewce07.9 ??C (98.5 ??F)08/26/2019 9:00 AM EDTRespiratory Ywhf4826 11:25 AM EDTOxygen Redtotsglh67%08/26/2019 12:00 PM EDTInhaled Oxygen Concentration--Mlbcbj09.8 kg (165 lb)09/10/2019 9:19 AM EDT Cnfxsh220.5 cm (5' 2 )09/10/2019 9:19 AM EDTBody Mass Index30.181 9:19 AM EDT Plan of Treatment Health MaintenanceDue DateLast DoneCommentsDepression Ilspwtsot77/24/1956Tobacco Thmwzveyy61/24/1956DTaP,Tdap and Td Vaccines (1 - Tdap)1963Zoster (Shingles) Vaccine (1 of 2)1994Fall Risk Ylvdromsk59/24/2009RSV ( or age 60+ yrs) (1 - 1-dose 75+ series)2019Influenza Anagehb7107/13/2025 Medical Devices Not on file Insurance [address] [place] [address] Care Teams Team MemberRelationshipSpecialtyStart DateEnd Date Van Grimm MD [facility]06/14/17
--- OUTSIDE RECORDS SUMMARY | 2025-10-14 13:25 | XMS_ITS | CCD ---
Author Organization [facility] Care Team Providers Care Work Measurement Engineer Name Role Phone Gilda Thomson Unavailable RALPH Wise Attending Provider Lesley Wise Unavailable Lesley Wise Attending Unavailable Lesley Wise Admitting Unavailable WALLY, DR VAN Hays Primary Care Unavailable PAY ., DR LUEVANO Attending Unavailable PAY ., DR LUEVANO Admitting Unavailable PAY ., DR LUEVANO Consulting Unavailable NADEREMatt, DR VAN Hays Consulting Unavailable NADEREMatt, DR VAN Hays Attending Unavailable NADEREMatt, DR VAN Hays Admitting Unavailable NADEREMatt, DR VAN Hays Primary Care Unavailable [place]AM[place], DR ARNALDO Rodriguez Consulting Unavailable NADEREMatt, DR VAN Hays Attending Unavailable NADEREMatt, DR VAN Hays Admitting Unavailable NADEREMatt, DR VAN Hays Primary Care Unavailable NADEREMatt, DR VAN Hays Consulting Unavailable Van Lo MD Primary Care Provider [phone] Van Lo MD Unavailable VAN LO Attending Unavailable SHAIKH REYES Attending Unavailable NADERER, VAN Attending Unavailable NADEREMatt, VAN Attending Unavailable NADEREMatt, VAN Attending Unavailable Allergies Allergy ClassificationReported Allergen(s)Allergy TypeDate of OnsetReaction(s) Facility (4 sources)diphenhydrAMINE; Translations: [Benadryl]Drug Ngjgitl52-87-7324tmyxnl [facility] Repository (1 source)diphenhydrAMINEDrug Allergythroat [facility] [employer] Other (10 sources)diphenhydrAMINEDrug Exilefu98-14-3115EzbpzozdOPJM Healthcare (10 sources)PrednisonePropensity to adverse jrxbhjluk44-36-9922DyepfOGTS Healthcare Medications Current Medications MedicationDrug Class(es)DatesSig (Normalized)Sig (Original)[id number] 200 actuat albuterol 0.09 mg/actuat metered dose inhaler (11 sources)beta2-Adrenergic AgonistStart: 01-21-2024 End: 74-24-9884ysxi 2 puff(s) by inhalation every four hours for wheezing albuterol HFA 90 mcg/act inhaler Indications: Chronic obstructive pulmonary disease, unspecified COPD type (HCC) Inhale 2 puffs every 4 (four) hours if needed for wheezing 8 g 2 04/13/2025 ActiveALPRAZolam 0.5 mg oral tablet (14 sources)BenzodiazepineStart: 06-20-2024 End: 72-84-5058ijjr 1 tablet by mouth three times daily as needed for anxiety ALPRAZolam (Xanax) 0.5 MG tablet Indications: Generalized anxiety disorder Take 1 tablet (0.5 mg) by mouth 3 (three) times a day as needed for anxiety 90 tablet 1 04/13/2025 ActiveStart: 79-32-6543Dlktdkoqau Active MG PO May 19, 2024 12:00amAzithromycin (1 source)Macrolide AntimicrobialStart: 34-14-9129Svebhrtaqgki Active 0 PO .COMPLEX 6 May 19, 2024 12:00am For 250 mg dose pack: take 500 mg today (day 1), then 250 mg for 4 days (days 2-5) POcephalexin 500 mg oral capsule (4 sources)Cephalosporin AntibacterialStart: 35-07-6014fulb 1 capsule by mouth every eight hoursCephalexin 500 MG 1 capsule Orally three times a day for 7 days Oct, ActiveStart: 59-09-0687qqih 1 tablet by mouth every twelve hours Cephalexin 500 MG 1 tablet Orally every 12 hrs for 10 day(s) Aug, Active ferrous sulfate (2 sources)Start: 74-10-2996txyl 1 tablet by mouth once dailyFerrous Sulfate Active 1 TAB PO Daily May 19, 2024 12:00am FreeTextSi tablet Orally Once a day; Note: Source Status: Taking; Provider: Billie Sutton ( )take 1 tablet by mouth once dailyFerrous Sulfate 325 (65 Fe) MG 1 tablet Orally Once a day Activelisinopril 5 mg oral tablet (15 sources)Angiotensin Converting Enzyme InhibitorStart: 55-66-8376musv 1 tablet by mouth once dailylisinopril 5 MG tablet Indications: Essential hypertension, benign Take 1 tablet (5 mg) by mouth Daily 90 tablet 3 10/16/2024 ActiveStart: 29-46-3191Digcxqqoxk Active MG PO May 19, 2024 12:00amStart: 63-13-8025jjec 1 tablet by mouth in the morninglisinopril 5 MG tablet Indications: Essential hypertension, benign (CMS/HCC) Take 1 tablet (5 mg) by mouth in the morning. 90 tablet 3 10/11/2023 Activetake 1 tablet by mouth every twenty-four hoursLisinopril 5 MG 1 tablet Orally Once a day ActiveLisinopril Activemeclizine hydrochloride 25 mg oral tablet (10 sources)AntiemeticStart: 65-62-9923ukor 1 tablet by mouth four times daily as needed for dizzinessmeclizine (Antivert) 25 MG tablet Indications: Vertigo Take 1 tablet (25 mg) by mouth 4 (four) times a day as needed for dizziness 60 tablet 1 05/19/2024 ActivemethylPREDNISolone 4 mg oral tablet (2 sources)CorticosteroidStart: 90-38-3316ojlr 1 tablet by mouth once Methylprednisolone (Medrol (Aristeo)) 4 mg tablets,dose pack Active 0 PO per package directions 2023 12:00am PO PER PKG DIRStart: 10-15-2022 methylPREDNISolone 4 MG as directed Orally Once a day for 6 days Oct, Activeomeprazole 20 mg delayed release oral capsule (15 sources)Proton Pump InhibitorStart: 21-16-4177dzzx 1 capsule by mouth twice dailyomeprazole (PriLOSEC) [address] capsule Indications: Gastroesophageal reflux disease without esophagitis TAKE 1 CAPSULE BY MOUTH TWICE A DAY 180 capsule 3 08/27/2024 ActiveStart: 68-46-0615Boxzjmcewm Active MG PO May 19, 2024 12:00am take 1 capsule by mouth once dailyomeprazole (PriLOSEC) [address] capsule Take 20 mg by mouth 1 (one) time each day at the same time Activetake 1 capsule by mouth twice dailyOmeprazole 20 MG 1 capsule 30 minutes before morning meal Orally twice a day ActiveOmeprazole Active Completed/Discontinued Medications MedicationDrug Class(es)DatesSig (Normalized)Sig (Original)fluconazole 150 mg oral tablet (4 sources)Azole AntifungalStart: 25-22-2440Zblydhbb 150 MG 1 tablet Orally if needed after antibiotics completed for 1 days Oct, ActiveStart: 05-07-6162ouwv 1 tablet by mouth onceFluconazole 150 MG 1 tablet Orally once for 1 day Aug, Active Problems Active Problems Problem ClassificationProblemDateDocumented DateEpisodic/ChronicAnxiety disorders (17 sources)Generalized anxiety disorder; Translations: [Generalized anxiety disorder]Onset: 961325-38-9643TzvgtiaFrrtnue obstructive pulmonary disease and bronchiectasis (15 sources)Chronic obstructive lung disease; Translations: [Chronic obstructive pulmonary disease, unspecified]Onset: 295721-09-9877ErrkqdbMbllsul obstructive pulmonary disease and bronchiectasis (1 source)Bronchitis, not specified as acute or chronicEpisodicDisorders of lipid metabolism (11 sources)Hyperlipidemia, unspecified; Translations: [Dyslipidemia]Onset: 237360-60-8062TnmrsahTrjppxqvgj disorders (14 sources)Gastroesophageal reflux disease; Translations: [Gastro-esophageal reflux disease without esophagitis]Onset: 007906-44-2247MrjmvvrAmycbdpmc hypertension (18 sources)Essential (primary) hypertension; Translations: [Benign essential hypertension]Onset: 11-85-4236UyruetrCwygkcjjhgojql (10 sources)Arthritis of left foot; Translations: [Primary osteoarthritis, left ankle and foot]Onset: 651491-19-9883ZybistvUceox acquired deformities (1 source)Other forms of scoliosis, lumbar region; Translations: [OTHER FORMS SCOLIOSIS LUMBAR REGION]Onset: 32-99-3945ZcboenjUykpq aftercare (1 source)Other senior living (current) drug therapy; Translations: [OTH CONSTRUCTION EQUIPMENT OPERATOR CURRENT DRUG THERAPY]Onset: 45-32-6297HskpwkhfPczsf non-traumatic joint disorders (4 sources)Pain in left hip; Translations: [PAIN IN LEFT HIP]Onset: 11-21-2022 EpisodicOther nutritional; endocrine; and metabolic disorders (1 source)Obesity, unspecified; Translations: [OBESITY UNSPECIFIED]Onset: 46-78-3200AascasvCymjj nutritional; endocrine; and metabolic disorders (1 source)Body mass index (BMI) 30.0-30.9, adult; Translations: [BODY MASS INDEX BMI 30.0-30.9 ADULT]Onset: 91-66-0126IjwfdehSnmgw nutritional; endocrine; and metabolic disorders (10 sources)Body mass index 30+ - obesity; Translations: [Obesity, unspecified] Onset: 423088-38-1456BnuenptImucr upper respiratory disease (10 sources)Allergic rhinitis due to pollen; Translations: [Allergic rhinitis due to pollen]Onset: 852870-93-5602GrmescrEoewhvdcyzo disorders (10 sources)Chronic depression; Translations: [Chronic depressive disorder] Onset: 01-21-2024 Resolved: 334295-02-0195EvtxsxxVguzrfkuzfn; intervertebral disc disorders; other back problems (15 sources)Spondylosis without myelopathy or radiculopathy, lumbar region; Translations: [Lumbar spondylosis]Onset: 911254-50-1823GsewewtYnmjdngivnk; intervertebral disc disorders; other back problems (2 sources)Lumbago with sciatica, left side; Translations: [Radiculopathy, lumbar region]Onset: 66-06-6808RhugsljfWqppmjlxdehj (2 sources)LOW BACK PAIN, UNSPECIFIED; Translations: [LOW BACK PAIN, UNSPECIFIED]Onset: 13-66-6478Drplruh tract infections (1 source)Acute cystitis with hematuriaEpisodic Past or Other Problems Problem ClassificationProblemDateDocumented DateEpisodic/ChronicAcute bronchitis (10 sources)Acute infective bronchitis; Translations: [Acute bronchitis due to other specified organisms]Onset: 06-03-2024 Resolved: 843018-56-1500VoelwvwhSpqtxzzzyanla symptoms and ill-defined conditions (14 sources)Frequency of micturition; Translations: [Other symptoms and signs involving the genitourinary system]Onset: 09-04-2021 Resolved: 88-51-1963NbguwdkyWwzb disorders (6 sources)Mood disordersOnset: Other aftercare (14 sources)Long-term current use of drug therapy; Translations: [Other senior living (current) drug therapy]Onset: 01-21-2024 Resolved: 240466-03-9846UvalixjwVddwp aftercare (6 sources)Patient encounter status; Translations: [Other senior living (current) drug therapy]Onset: 01-21-2024 Resolved: 378667-49-9202OhsdazvqSbzqu non-traumatic joint disorders (10 sources)Hip pain; Translations: [Pain in left hip]Onset: 01-21-2024 28-42-6032FzvhekumEjhze upper respiratory infections (20 sources)Acute sinusitis; Translations: [Acute sinusitis, unspecified]Onset: 01-21-2024 Resolved: 128027-07-3309WykbdeuvJnnyfdwkbdmd (1 source)Acute cough R05.1Unclassified (1 source)LOW BACK PAIN, UNSPECIFIED; Translations: [LOW BACK PAIN, UNSPECIFIED] Onset: 11-14-2022 Results Test NameValueInterpretationReference RangeFacilityNo Panel InformationOrdered By: Silva Baker on 82-09-9633XQRCG Antigen (POC)[facility] ColumbusCBC AUTO DIFFon 34-61-1717TYUP #0.1 103/ulNormal0.0-0.1St. [facility] HospitalComment on above:Performed By: #### CBC #### [facility] [address] [address] [address] Gustavo HanBasophils/100 WBC (Bld)0.7 %Normal0.2-2.0The [facility] Comment on above:Performed By: #### CBC #### [facility] [address] [address] [address] Gustavo Zaman #0.1 103/ulNormal0.0-0.7The [facility] HealthComment on above: Performed By: #### CBC #### [facility] [address] [address] [address] Gustavo Greenosinophils/100 WBC (Bld)2.0 %Normal0.9-7.0The [facility] Comment on above:Performed By: #### CBC #### [facility] [address] [place] [address] Dr. Gustavo Greenrythrocyte distribution width (RBC) [Ratio]13.1 %Ltmgir18.0-15.0 The [facility] HealthComment on above:Performed By: #### CBC #### [facility] [address] [place] [address] Dr. Gustavo HanHematocrit (Bld) [Volume fraction]45.3 %Yolrpt47.0-48.0The [facility] HealthComment on above:Performed By: #### CBC #### [facility] [address] [place] [address] Dr. Gustavo HanHemoglobin (Bld) [Mass/Vol]15.2 g/zLDdosws97.0-16.0St. [facility] HospitalComment on above:Performed By: #### CBC #### [facility] [address] [place] [address] Dr. Gustavo Mcarthur #0.02 10e3/ulNormal0.00-0.03The [facility] HealthComment on above:Performed By: #### CBC #### [facility] [address] [place] [address] Dr. Gustavo Mcarthur %0.3 %Normal0.0-0.5The [facility] HealthComment on above: Performed By: #### CBC #### [facility] [address] [place] [address] Dr. Gustavo SterlingH #2.5 103/ulNormal1.2-3.8The [facility] HealthComment on above:Performed By: #### CBC #### [facility] [address] [place] [address] Dr. Gustavo Sainimphocytes/100 WBC (Bld)36.1 %Xtklvp58.5-60.0The [facility] HealthComment on above:Performed By: #### CBC #### [facility] [address] [place] [address] Dr. Gustavo ContrerasUAL DIFF REQNONormalThe [facility] HealthComment on above: Performed By: #### CBC #### [facility] [address] [place] [address] Dr. Gustavo Frias (RBC) [Entitic mass]29.7 zkPoqmva15.7-34.0The [facility] HealthComment on above:Performed By: #### CBC #### [facility] [address] [place] [address] Dr. Gustavo Frias (RBC) [Mass/Vol]33.6 g/qOGjdduk09.9-35.2The [facility] HospitalComment on above:Performed By: #### CBC #### [facility] [address] [place] [address] Dr. Gustavo Frias (RBC) [Entitic vol]88.5 bKQjwaox28.0-99.0The [facility] HealthComment on above:Performed By: #### CBC #### [facility] [address] [place] [address] Dr. Gustavo Manzanares #0.5 103/ulNormal0.3-0.8The [facility] HealthComment on above:Performed By: #### CBC #### [facility] [address] [place] [address] Dr. Gustavo Carlocytes/100 WBC (Bld)6.8 %Normal1.7-12.0The [facility] Comment on above:Performed By: #### CBC #### [facility] [address] [place] [address] Dr. Gustavo Ortiz #3.8 103/ulNormal1.4-6.5The [facility] HealthComment on above:Performed By: #### CBC #### [facility] [address] [place] [address] Dr. Gustavo Moffettutrophils/100 WBC (Bld)54.1 %Metwbg81.0-75.0The [facility] HealthComment on above:Performed By: #### CBC #### [facility] [address] [place] [address] Dr. Gustavo Bryanlet mean volume (Bld) [Entitic vol]10.6 fLNormal9.5-13.5The [facility] on above:Performed By: #### CBC #### [facility] [address] [place] [address] Dr. Gustavo NelsonT230 103/rwAgwbid276-759Dmp [facility]Come[facility] on above: Performed By: #### CBC #### [facility] [address] [place] [address] Dr. Gustavo HanRBC5.12 106/ulNormal4.20-5.40The [facility] on above:Performed By: #### CBC #### [facility] [address] [place] [address] Dr. Gustavo HanWBC7.0 103/ulNormal4.0-11.0The [facility] on above: Performed By: #### CBC #### [facility] [address] [place] [address] Dr. Gustavo CovarrubiasID PROFILEon 31-29-5382WOSV-HDL RATIO NORMSEE [facility] CenterComeaton rap[facility] on above:Result Comment: 3.3 - 4.4 LOW RISK 4.4 - 7.1 AVERAGE RISK 7.1 - 11.0 MODERATE RISK >11.0 HIGH RISKPerformed By: #### TSH, LIVER, LIPID, BMP #### [facility] [address] [place] [address] Dr. Gustavo HanCholesterol [Mass/Vol]212 mg/dLCritically high<=200The [facility] on above:Performed By: #### TSH, LIVER, LIPID, BMP #### [facility] [address] [place] [address] Dr. Gustavo Stevensonesterol in HDL [Mass/Vol]63 mg/dLCritically awob37-95Qbx [facility] on above:Performed By: #### TSH, LIVER, LIPID, BMP #### [facility] [address] [place] [address] Dr. Gustavo Stevensonesterol in LDL [Mass/Vol]120.0 mg/dLKettering Memorial HospitalComment on above:Performed By: #### TSH, LIVER, LIPID, BMP #### [facility] [address] [place] [address] Dr. Gustavo Christopher.total/Cholesterol in HDL [Mass ratio]3.4 {ratio} NormalSt. Charles HospitalComeaton rapids medical center on above:Performed By: #### TSH, LIVER, LIPID, BMP #### [facility] [address] [place] [address] Dr. Gustavo Bradley NORMAL> or = 60 mg/dl - LOW CARDIOVASCULAR RISK <40 mg/dl - HIGH CARDIOVASCULAR RISKKettering Memorial HospitalComment on above:Performed By: #### TSH, LIVER, LIPID, BMP #### [facility] [address] [place] [address] Dr. Gustavo Stubbs CALC NORMALSEE BELOWKettering Memorial HospitalComment on above:Result Comment: <100 mg/dl OPTIMAL 100 - 129 mg/dl NEAR OR ABOVE OPTIMAL 130 - 159 mg/dl BORDERLINE HIGH 160 - 189 mg/dl HIGH >190 mg/dl VERY HIGH Performed By: #### TSH, LIVER, LIPID, BMP #### [facility] [address] [place] [address] Dr. Gustavo HanTriglyceride [Mass/Vol]145 mg/dLNormal<=150[facility] Comment on above:Performed By: #### TSH, LIVER, LIPID, BMP #### [facility] [address] [place] [address] Dr. Gustavo Lua CALC29.0 mg/dLNoSelect Medical Specialty Hospital - [facility] NorthComeaton rapids medical center on above: Performed By: #### TSH, LIVER, LIPID, BMP #### [facility] [address] [place] [address] Dr. Gustavo Solis PROFILEon 63-24-0788Rjkixvb [Mass/Vol]4.0 g/dLNormal3.4-5.0 The [facility] HealthComment on above:Performed By: #### TSH, LIVER, LIPID, BMP #### [facility] [address] [place] [address] Dr. Gustavo HanAlbumin/Globulin [Mass ratio]1.3 {ratio}NormalThe [facility] HealthComment on above:Performed By: #### TSH, LIVER, LIPID, BMP #### [facility] [address] [place] [address] Dr. Gustavo CaiP [Catalytic activity/Vol]94 U/DYqldkk99-144Cxz [facility] HealthComment on above:Performed By: #### TSH, LIVER, LIPID, BMP #### [facility] [address] [place] [address] Dr. Gustavo CaiT [Catalytic activity/Vol]28 U/TYldmnw07-57Jal [facility] HealthComment on above:Performed By: #### TSH, LIVER, LIPID, BMP #### [facility] [address] [place] [address] Dr. Gustavo HanAST [Catalytic activity/Vol]19 U/LVonowa92-66Fot [facility] HealthComment on above:Performed By: #### TSH, LIVER, LIPID, BMP #### [facility] [address] [place] [address] Dr. Gustavo JeongI, CONJUGATED0.1 mg/dLNormal0.0-0.2[facility] Comment on above:Performed By: #### TSH, LIVER, LIPID, BMP #### [facility] [address] [place] [address] Dr. Gustavo Jeongirubin [Mass/Vol]0.4 mg/dLNormal0.2-1.0[facility] Comment on above:Performed By: #### TSH, LIVER, LIPID, BMP #### [facility] [address] [place] [address] Dr. Gustavo HanGlobulin (S) [Mass/Vol]3.0 g/dLNormalThe [facility] HealthComment on above:Performed By: #### TSH, LIVER, LIPID, BMP #### [facility] [address] [place] [address] Dr. Gustavo HanProtein [Mass/Vol]7.0 g/dLNormal6.4-8.2The [facility] Comment on above:Performed By: #### TSH, LIVER, LIPID, BMP #### [facility] [address] [address] [address] Gustavo HanPROF CHEM 8 (BAS METB)on 56-85-4560Krpvs gap [Moles/Vol]13.3 mmol/LNormalThe [facility] HealthComment on above:Performed By: #### TSH, LIVER, LIPID, BMP #### [facility] [address] [place] [address] Dr. Gustavo HanCalcium [Mass/Vol]10.2 mg/dLCritically high8.5-10.1The [facility] HealthComment on above:Performed By: #### TSH, LIVER, LIPID, BMP #### [facility] [address] [place] [address] Dr. Gustavo HanChloride [Moles/Vol]105 mmol/RAbynah54-482Qsm [facility] Comment on above:Performed By: #### TSH, LIVER, LIPID, BMP #### [facility] [address] [place] [address] Dr. Gustavo HanCO2 [Moles/Vol]29.9 mmol/BQdfbms43.0-32.0The [facility] Comment on above:Performed By: #### TSH, LIVER, LIPID, BMP #### [facility] [address] [place] [address] Dr. Gustavo HanCreatinine [Mass/Vol]0.63 mg/dLNormal0.55-1.02The [facility] HealthComment on above:Performed By: #### TSH, LIVER, LIPID, BMP #### [facility] [address] [place] [address] Dr. Chen ChangEGFR-AF TAJIK>60Normal>=60The [facility] HealthComment on above:Performed By: #### TSH, LIVER, LIPID, BMP #### [facility] [address] [place] [address] Dr. Gustavo GreenGFR-NON AF TAJIK>60Normal>=60The [facility] HealthComment on above:Performed By: #### TSH, LIVER, LIPID, BMP #### [facility] [address] [address] [address] Gustavo HanGlucose [Mass/Vol]99 mg/dROizumc97-245PvlSt. Charles Hospital Comment on above:Performed By: #### TSH, LIVER, LIPID, BMP #### [facility] [address] [address] [address] Gustavo HanPotassium [Moles/Vol]4.2 mmol/LNormal3.5-5.1The [facility] Comment on above:Performed By: #### TSH, LIVER, LIPID, BMP #### [facility] [address] [address] [address] Gustavo HanSodium [Moles/Vol]144 mmol/ETccmhd350-341Mbn [facility] Comment on above:Performed By: #### TSH, LIVER, LIPID, BMP #### [facility] [address] [place] [address] Dr. Gustavo HanUrea nitrogen [Mass/Vol]19.0 mg/dLCritically high7.0-18.0The [facility] HealthComment on above:Performed By: #### TSH, LIVER, LIPID, BMP #### [facility] [address] [address] [address] Gustavo Jimenez nitrogen/Creatinine [Mass ratio]30.2 mg/mgNormalThe [facility] HealthComment on above:Performed By: #### TSH, LIVER, LIPID, BMP #### [facility] [address] [place] [address] Dr. Gustavo Unger 19-87-0200ZKE4.755 uIU/mLNormal0.358-3.740St. [facility] HospitalComment on above:Performed By: #### TSH, LIVER, LIPID, BMP #### [facility] [address] [place] [address] Dr. Gustavo HanXR LSPINE 2_3 VIEWSon 42-35-9927XF LSPINE 2_3 VIEWSEXAMINATION: XR LSPINE 2_3 VIEWS HISTORY: Lumbago with [...] Electronically authenticated by: ARNALDO NORIEGA Date: 2022-11-21 12:15NormalSt. Charles HospitalCOVID Quick Testingon 62-54-1331QzxroxKqwitiieYulmo [employer] Other Urinalysis - AUTOMATEDon 44-01-5869Dlujtlskxh (U) CLOUDC[facility] [employer] Other Bilirubin Ql (U)ERA [employer] Other Color (U)yellowTractive [employer] Other Glucose Ql (U)[employer] Other Hemoglobin Ql (U)SMALLTractive [employer] Other Ketones Ql (U)NegativeTractive [employer] Other Leukocyte esterase Test strip Ql (U)TRACETractive [employer] Other Nitrite Ql (U)[employer] Other pH (U)5.5 [pH][facility] [employer] Other Protein Ql (U)[employer] Other Specific gravity (U) [Rel density]>=1.030[facility] [employer] Other Urobilinogen (U) [Mass/Vol]0.2 mg/dLTractive [employer] Other Urinalysis - [facility] [employer] Other Urine Cultureon 25-63-8454Voswdizh identified Cx Nom (U)Reason for Exam Urgency of urination Urine Reason for Exam: Urgency of urination : Urine 20,000 colonies/ml mixed bacterial skin contaminants 2 Days PERFORMED BY: [facility] [address] [place] [address] PATHOLOGIST ADMISSIONS NURSE HARI BISHOP M.D.[facility] CompanyComment on above: Performed By: #### CUU #### [facility] [address] [id number] USAUrine Cultureon 17-55-1715Tfged Culture>100,000Nort [employer] Other Vital Signs Date TimeVital SignValuePerforming GhkqgjbotUhkokdld83-17-2667 14:45-0400Body kpiijk872.5 cmVan Lo MD Work Phone: [facility] HospitalEijoxgiyuf77-69-5466 14:45-0400Body mass index (BMI) [Ratio]30.18 kg/m2Van Lo MD Work Phone: [facility] HospitalBxjwwggmrr70-74-4351 14:45-0400Body temperature 97.11 [degF]Van Lo MD Work Phone: [facility] HospitalAyjaetrygt71-48-5875 14:45-0400Body jducgb93.84 kgVan Lo MD Work Phone: [facility] HospitalRedusqaccw87-04-9129 14:45-0400Diastolic blood aqtwlwmf13 mm[Hg]Van Lo MD Work Phone: [facility] HospitalUywjjefgzr89-87-6800 14:45-0400Heart rate79 /min Van Lo MD Work Phone: [facility] HospitalZtmxuniany44-97-6733 14:45-0400Respiratory rate18 /minVan Lo MD Work Phone: [facility] HospitalBmkqqbecmq93-01-8052 14:45-2425OwC2% (BldA) [Mass fraction]93 %Van Lo MD Work Phone: [facility] HospitalYtzeaddgfc52-51-9600 14:45-0400Systolic blood iplxuszg898 mm[Hg]Van Lo MD Work Phone: [address] [address]Aazzhodibj72-19-9395 08:39-0400Body zejoen143.5 cmVan Lo MD Work Phone: [phone])[facility]-[address] [place], [place] [address]Cphvhbagoy48-40-7037 08:39-0400Body mass index (BMI) [Ratio]28.72 kg/m2Van Lo MD Work Phone: [facility] HospitalLwsnwbozrq90-31-9171 08:39-0400Body temperature 95.5 [degF]Van Lo MD Work Phone: [phone] [place], [place] 5317910-16-2024 08:39-0400Body avewpl01.22 kgVan Lo MD Work Phone: [phone] [place], [place] 5317910-16-2024 08:39-0400Diastolic blood mm[Hg]Van Lo MD Work Phone: [phone]10-16-2024 08:39-0400Heart rate74 /min Van Lo MD Work Phone: [phone] [place], [place] 1311210-16-2024 08:39-0400Respiratory rate20 /minVan Lo MD Work Phone: [phone] [place], [place] [address]Pfovyqitoj93-90-7667 08:39-8776UgA3% (BldA) [Mass fraction]96 %Van Lo MD Work Phone: [facility] HospitalOhaefpdrzx49-54-4748 08:39-0400Systolic blood qcaukatj225 mm[Hg]Van Lo MD Work Phone: [phone] [place], [place] [address]Khgywctdtd19-92-2957 08:11-0400Body mass index (BMI) [Ratio]28.53 kg/m2Van Lo MD Work Phone: [phone]09-16-2024 08:11-0400Body temperature 97.59 [degF]Van Lo MD Work Phone: [facility] HospitalXkyqgzpdio18-25-3988 08:11-0400Body opuxkm35.76 kgVan Lo MD Work Phone: [phone] [place], [place] 5317909-16-2024 08:11-0400Diastolic blood uoxmqmay89 mm[Hg]Van Lo MD Work Phone: [facility] HospitalDmiuijqbto77-51-7674 08:11-0400Heart rate64 /min Van Lo MD Work Phone: [facility] HospitalZdixvywsma28-29-3794 08:11-0400Respiratory rate15 /minVan Lo MD Work Phone: [facility] HospitalIoualjduyb93-61-3378 08:11-5225BvB0% (BldA) [Mass fraction]98 %Van Lo MD Work Phone: [facility] HospitalDmwfmwyhce94-88-3447 08:11-0400Systolic blood mm[Hg]Van Lo MD Work Phone: [facility] HospitalAviyhybxuh64-34-2943 18:05-0400Body tmqqgu736.48 cm[facility]20[facility] 18:05-0400Body mass index (BMI) [Ratio]27.2 kg/s1EejemgcyqChildren'S [facility]07-08-2024 18:05-0400Body efjihvumhai31.6 [degF][facility]07-08-2024 18:05-0400Body cispkg93.64 kgChildren'[facility]07-08-2024 18:05-0400Diastolic blood btbtrclu46 mm[Hg][facility]07-08-2024 18:05-0400 Heart rate62 /minChildren'S Hospital [facility]07-08-2024 18:05-3202FuH3% (BldA) [Mass fraction]96 %[facility]07-08-2024 18:05-0400 Systolic blood pekqixhl824 mm[Hg][facility]12-04-2022 12:50-0500Body byqxvi119.48 Abe Wise Other [facility] [employer] Other 12-04-2022 12:50-0500Body mass index (BMI) [Ratio]30.1 kg/r7Auboruwae Billie Other [facility] Other 12-04-2022 12:50-0500Body cjlyydbqfmt55 [degF] Lesley Garnerault Other [facility] Other 12-04-2022 12:50-0500Body .66 kgStdale Garnerault Other [facility] Other 12-04-2022 12:50-0500Diastolic blood kiemzicb38 mm[Hg] Lesley Billie Other [facility] Other 12-04-2022 12:50-0500Respiratory rate18 /minSngoc Billie Other [facility] Other 12-04-2022 12:50-1236PrX8% (BldA) [Mass fraction]95 % Lesley Garnerault Other [facility] Other 12-04-2022 12:50-0500Systolic blood qgvlmjee628 mm[Hg] Lesley Garnerault Other [facility] Other 10-24-2021 12:50-0400Body cfvtih752.48 cmAmbconner Thomson Other [facility] Other 10-24-2021 12:50-0400Body mass index (BMI) [Ratio] 30.72 kg/o7Qyyuf Gintstone Other [facility] Other 10-24-2021 12:50-0400Body .5 [degF]Gilda Thomson Other [facility] Other 10-24-2021 12:50-0400Body uyrotc26.2 kgAmber Ginty Other [facility] Other 10-24-2021 12:50-0400Diastolic blood yvbvotvv34 mm[Hg] Gilda Ginty Other [facility] Other 10-24-2021 12:50-0400Respiratory rate16 /minAmber Ginty Other [facility] Other 10-24-2021 12:50-7149YwF3% (BldA) [Mass fraction]96 % Gilda Ginty Other [facility] Other 10-24-2021 12:50-0400Systolic blood mm[Hg] Gilda Ginty Other [facility] Other Encounters Encounter DateEncounter TypeCare ProviderFacilityStart: 05-14-2025 End: 98-02-1357Reefoe outpatient visit 25 minutesVan Lo MD Work Phone: [facility] CW FMComment on above:Essential hypertension, benign (Primary Dx); Generalized anxiety disorder ; Lumbar spondylosis; Chronic obstructive pulmonary disease, unspecified COPD type (HCC); Gastroesophageal reflux disease without esophagitisStart: 05-14-2025 End: 48-33-0892iqiisigimmMHUE NADERERNot AvailableStart: 05-14-2025 End: 87-82-5045Vsodhb Daisy Lo MD Work Phone: [facility] CWM FMStart: 05-14-2025 End: 29-00-0796Cxajwh Daisy Lo MD Work Phone: [facility] FMStart: 04-13-2025 End: 61-36-2863CjovapIwqn Naderer MD Work Phone: [facility] FMComment on above:Chronic obstructive pulmonary disease, unspecified COPD type (CMS/HCC); Generalized anxiety disorder (CMS/HCC)Start: 08-27-2024 End: 93-92-8592Pdrbsm Daisy Lo MD Work Phone: [facility] FMStart: 08-27-2024 End: 89-71-6537Lwadqh Daisy Lo MD Work Phone: [facility] FMStart: 08-27-2024 End: 06-45-5531Owqdzdn encounter Padmaja Lo MD Work Phone: [facility] Work Phone: Start: 08-27-2024 End: 53-39-4586Pxceta follow up visit related to original Danis Lo MD Work Phone: NOPZ CWM FMComment on above:Medicare annual wellness visit, subsequent (Primary Dx); Generalized anxiety disorder (CMS/HCC)Start: 08-27-2024 End: 24-20-1607qhyqafvxzzXYNT NADERERNot AvailableStart: 07-28-2024 End: 07-41-6372Tkfwif Daisy Lo MD Work Phone: NODY CWM FMStart: 07-28-2024 End: 18-01-4215Qejrwt Daisy Lo MD Work Phone: NOUM CWM FMStart: 07-28-2024 End: 69-21-0950cehzpzbfviOSYO NADERERNot AvailableStart: 07-28-2024 End: 53-23-3947Iixllo outpatient visit 25 minutesVan Lo MD Work Phone: [facility] CWM FMComment on above:Essential hypertension, benign (CMS/HCC) (Primary Dx); Chronic obstructive pulmonary disease, unspecified COPD type (CMS/HCC); Generalized anxiety disorder ([facility]); Lumbar spondylosis; Gastroesophageal reflux disease without esophagitisStart: 06-03-2024 End: 47-63-4721byjcnrzoioABRB NADERERNot AvailableStart: 05-22-2024 End: 62-24-5949fkficnmvciWHMMWK JOEFelipeNIRAVGreg AvailableStart: 05-19-2024 End: 85-56-7973lqmpuaytslYwnyqxsfqPro[facility]ant Hospital Work Phone: Start: 05-19-2024 End: 36-01-8577Vweamiy encounter procedureFormerly [facility], [facility] Work Phone: Start: 01-16-2023 End: 01-08-0886erypkrsnrkCD MARC A NADERERFacility:N8Mgxsj: 11-21-2022 End: 61-39-0475tngtyttvaaUF DAVID V WESTFacility:U7Pebzy: 11-14-2022 End: 08-32-8415pfvhkasurrLZ MARC A NADERERFacility:L8Kfkjl: 10-15-2022 End: 81-49-9719lapmkdrbhwDuoggpcbk BillieFacility:[facility] Hospitaltart: 50-13-3647Ozpnes outpatient visit 15 minutesStepshiv [facility] ydeStart: 10-15-2022 End: 46-99-5937yppajjqulpYCG-C Lesley Wise Work Phone: [facility] Work Phone: Start: 10-15-2022 End: 80-86-2524Qclqwetr ReferredFNP-C Lesley Wise Work Phone: [facility] CampusStart: 09-13-2021 End: 01-42-7936tanyqoundjZhdxx Ginty Other [facility] [employer] Other Start: 92-89-7562Vzmnicqtm encounterAmbconner Rossi [facility] Arbortart: 09-07-2021 End: 33-67-2612shujaledseRsoxj Ginty Other [employer] Other Start: 24-65-7408Frgpnvwtf encounterAmber GintyFPG Urgent Care ClydeStart: 09-04-2021 End: 84-68-1376hbxvnwlodaCaena Ginty Other [facility] Other Start: 33-89-1021Jhdfap outpatient visit 15 minutes Gilda GintyFPG [facility] Procedures DateProcedureProcedure DetailPerforming ClinicianStart: 81-46-3936ZAGXI Antigen (POC) Plan of Treatment DateCare ActivityDetailAuthorStart: 09-23-2025 End: 62-80-6131Picnbnh encounter pucsjfrjg05/12/2025 8:00 AM EST Office Visit [facility] [address] [place] [phone] Van Lo MD [address] [place] [phone] [facility] CWM FMStart: 10-16-2025Medicare Annual Wellness (AWV)Medicare Annual Wellness (AWV)[facility] HealthcareStart: 08-24-6888Nyrrasjwt vaccinationNOMS HealthcareStart: 05-14-2025 End: 28-22-1277Higjpzg encounter procedureNOMS CWM FMComment on above:Arrived Start: 02-25-2025 End: 31-93-2512Dunqskx encounter stkyufyon76/16/2025 9:00 AM EDT Office Visit [facility] [address] [place] [phone] Van Lo MD [address] [place] [phone] [facility] FMStart: 08-27-2024 End: 32-54-8166Szvopba encounter procedureNOMS CWM FMComment on above:Arrived Start: 80-86-8835Meeamxbpv vaccinationInfluenza Vaccine (#1)[facility] Start: 1944Medicare Annual Wellness (AWV)Medicare Annual Wellness (AWV) [facility] HealthcareBacteria identified in Urine by CultureChildren'S Hospital [facility] Immunizations Immunization DateImmunizationNotesCare FkbjiamaQcknycfy48-37-8199Aqvmnogah, High-dose Seasonal, Quadrivalent, Preservative FreeVan Lo MD Work Phone: [facility] HospitalDujtalluap20-74-8201xzsnjwlup virus vaccine, unspecified formulationVan Lo MD Work Phone: [facility] HospitalUuodzpxgtx50-67-2366Zdblcjaxm, High-dose Seasonal, Quadrivalent, Preservative FreeVan Lo MD Work Phone: [facility] HospitalRwjfznkagt95-42-6306Esvsxsbdkqgb Conjugate PCV 20 Van Lo MD Work Phone: [facility] HospitalJhcscyplnk99-09-5613Vtaoacvje, Seasonal, Quadrivalent, AdjuvantedVan Lo MD Work Phone: noResearch Psychiatric CenterKxavhhgpea65-32-4338eroumwkvl, high dose seasonal, preservative-freeVan Lo MD Work Phone: [facility] HospitalQlmvlgshli54-42-6506qtwfjovdp, high dose seasonal, preservative-freeVan Lo MD Work Phone: [facility] HospitalPmkjtgvalx67-61-6899yvikhwdca, injectable, quadrivalent, preservative freeVan Lo MD Work Phone: noResearch Psychiatric CenterKakccejjdn66-31-0131Nlnuxenhn, injectable, Madin [place] Canine Kidney, preservative free, quadrivalentVan Lo MD Work Phone: [facility] Payers DatePayer CategoryPayerPolicy [id number] (Managed Care)[employer] [id number] [id number] MEDICARE ADVANTAGE [id number] 2022MedicareAETNA MEDICARE ADVANTAGE AETNA MEDICARE REPLACEMENT [id number] 2021- [address] [place] [id number] Health [id number] [id number] .[id number] .1.737486.3.57[id number] .1.244129.3.57[id number] 2.840.1.968058.3.57[id number] 2.16.840.1.985197.3.57[id number] 2.840.1.807304.3.57[id number] 2.840.1.120402.3.57[id number] 2.840.1.005959.[id number] 2.840.1.208503.19Unknown [id number] 2.840.1.141489.3.579.2.531 Social History DateTypeDetailFacilityStart: 07-28-2024 End: 08-85-2551Oby Assigned At [facility] [employer] Other Start: 44-02-7970Daf Assigned At BirthRiverside Methodist Hospitaltart: 41-50-0388Wwegqpn smoking status NHISNever smoked tobacco (finding)[facility] Hospitaltart: 47-48-1418Zmrkgja smoking status NHISEx-smokerNOMS HealthcareHistory of tobacco useCurrent smoker [facility] HealthcareHistory of tobacco useCigarette SmokerNOMS HealthcareHistory of tobacco usePassive smokerNOMS HealthcareStart: 86-36-3886Kqxulym use and exposureSmokeless tobacco non-userNOMS HealthcareStart: 07-28-2024 End: 58-04-6655Xtefpotdy beverage intakeLifetime non-drinker (finding)[facility] HealthcareStart: 07-28-2024 End: 43-83-5655Iklfumz of Social functionNOMS HealthcareStart: 28-00-2381Ioc assigned at birthNot on fileNOMS Healthcare Clinical Notes 09-04-2021 to 05-14-2025 Note Date & AglgQateXhwzzegl50-51-9721 History of Present illness Narrative* Van Lo MD - 05/14/2025 3:12 PM EDTAssociated Problem(s): Lumbar spondylosis Mild pain but tolerable with OTC. Increase activity and walk regularly. * Van Lo MD - 05/14/2025 3:12 PM EDTAssociated Problem(s): Generalized anxiety disorder Symptoms controlled with xanax and use PRN. * Van Lo MD - 05/14/2025 3:12 PM EDTAssociated Problem(s): Gastroesophageal reflux disease Symptoms controlled with omeprazole and continue. * Vna Lo MD - 05/14/2025 3:11 PM EDTAssociated Problem(s): Essential hypertension, benign BP controlled and monitor PRN. * Van Lo MD - 05/14/2025 3:11 PM EDTAssociated Problem(s): COPD (chronic obstructive pulmonary disease) ([facility]) Occasional symptoms but tolerable and use albuterol PRN. * Van Lo MD - 05/14/2025 2:30 PM EDT Images from the original note were not included. Subjective Patient ID: Anuja Matta is a 80 y.o. female who presents for Follow-up (6 M). Follow up HTN, back pain, anxiety, COPD, and GERD. Patient doing well today. Checking BP PRN and typically controlled. BP normal today. Taking medication daily and tolerating without side effects. Back pain stable. Mild pain in low back and across top hips. Occasional radiation into gluteal region and down legs. Pain worse with walking and standing. Using OTC PRN and tolerable. Anxiety stable. Not as stressed out or overwhelmed. Not as nervous or worry as much. Not as torres or irritable. Using xanax PRN and helps when needed. COPD stable. Mild SOB and cough with exertion. Mild fatigue with exertion. No chest tightness. Mild cough but no sputum. Uses albuterol few times a month which helps when needed. GERD controlled with omeprazole. Denies epigastric pain or burning and not waking up with symptoms. Review of Systems Respiratory: Negative for cough, shortness of breath and wheezing. Cardiovascular: Negative for chest pain and palpitations. Gastrointestinal: Negative for abdominal pain, diarrhea, nausea and vomiting. Genitourinary: Negative for dysuria. Objective Physical Exam Constitutional: General: She is not in acute distress. Appearance: Normal appearance. HENT: Head: Normocephalic. Right Ear: Tympanic membrane normal. Left Ear: Tympanic membrane normal. Eyes: Extraocular Movements: Extraocular movements intact. Pupils: Pupils are equal, round, and reactive to light. Cardiovascular: Rate and Rhythm: Normal rate and regular rhythm. Heart sounds: No murmur heard. No friction rub. No gallop. Pulmonary: Effort: Pulmonary effort is normal. Breath sounds: Normal breath sounds. No wheezing, rhonchi or rales. Abdominal: General: Bowel sounds are normal. There is no distension. Palpations: Abdomen is soft. Tenderness: There is no abdominal tenderness. There is no guarding or rebound. Musculoskeletal: Cervical back: Neck supple. Right lower leg: No edema. Left lower leg: No edema. Neurological: Mental Status: She is alert. Assessment/Plan Problem List Items Addressed This Visit Essential hypertension, benign - Primary BP controlled and monitor PRN. Generalized anxiety disorder Symptoms controlled with xanax and use PRN. Gastroesophageal reflux disease Symptoms controlled with omeprazole and continue. Lumbar spondylosis Mild pain but tolerable with OTC. Increase activity and walk regularly. COPD (chronic obstructive pulmonary disease) ([facility]) Occasional symptoms but tolerable and use albuterol PRN. documented in this encounterSt. Luke's HospitalZjzlcjbxga53-38-6419 History of Present illness Narrative* Van Lo MD - 08/27/2024 9:02 AM EDTAssociated Problem(s): Medicare annual wellness visit, subsequent Reviewed labs. Discussed proper diet and regular aerobic exercise. Need aerobic exercise 5-6 days aweek for 30 minutes at a time. Smaller portions and limit total calories. Tetanus every 10 years. Advised not to smoke. Discussed daily Aspirin therapy. * Van Lo MD - 08/27/2024 8:30 AM EDT Images from the original note were not included. Subjective Patient ID: Anuja Matta is a 79 y.o. female who presents for Medicare Annual Wellness Visit Initial (Wellness/). Presents for medicare annual wellness visit. Patient feels well today. Weight down 5 pounds in the past year. Tries to stay active around the house. Tries to watch diet and eat healthy. Increased fruits and vegetables. Smaller portions and limits snacking. Tries to limit total daily calories. Reviewed labs from January. Review of Systems Respiratory: Negative for cough, shortness of breath and wheezing. Cardiovascular: Negative for chest pain and palpitations. Gastrointestinal: Negative for abdominal pain, diarrhea, nausea and vomiting. Genitourinary: Negative for dysuria. Objective Physical Exam Constitutional: General: She is not in acute distress. Appearance: Normal appearance. HENT: Head: Normocephalic. Right Ear: Tympanic membrane normal. Left Ear: Tympanic membrane normal. Eyes: Extraocular Movements: Extraocular movements intact. Pupils: Pupils are equal, round, and reactive to light. Cardiovascular: Rate and Rhythm: Normal rate and regular rhythm. Heart sounds: No murmur heard. No friction rub. No gallop. Pulmonary: Effort: Pulmonary effort is normal. Breath sounds: Normal breath sounds. No wheezing, rhonchi or rales. Abdominal: General: Bowel sounds are normal. There is no distension. Palpations: Abdomen is soft. Tenderness: There is no abdominal tenderness. There is no guarding or rebound. Musculoskeletal: General: No swelling or tenderness. Cervical back: Neck supple. Right lower leg: No edema. Left lower leg: No edema. Skin: Findings: No erythema or rash. Neurological: General: No focal deficit present. Mental Status: She is alert and oriented to person, place, and time. Cranial Nerves: No cranial nerve deficit. Motor: No weakness. Gait: Gait normal. Assessment/Plan Problem List Items Addressed This Visit Generalized anxiety disorder (CMS/HCC) Relevant Medications ALPRAZolam (Xanax) 0.5 MG tablet Medicare annual wellness visit, subsequent - Primary Reviewed labs. Discussed proper diet and regular aerobic exercise. Need aerobic exercise 5-6 days aweek for 30 minutes at a time. Smaller portions and limit total calories. Tetanus every 10 years. Advised not to smoke. Discussed daily Aspirin therapy. documented in this encounterSt. Luke's HospitalCnsvbjqqdr35-62-5286 History of Present illness Narrative* Van Lo MD - 07/28/2024 8:42 AM EDTAssociated Problem(s): Lumbar spondylosis Mild pain but tolerable with OTC. Increase activity and walk regularly. * Van Lo MD - 07/28/2024 8:42 AM EDTAssociated Problem(s): Generalized anxiety disorder (CMS/HCC) Symptoms controlled with xanax and use PRN. * Van Lo MD - 07/28/2024 8:42 AM EDTAssociated Problem(s): Gastroesophageal reflux disease Symptoms controlled with omeprazole and continue. * Van Lo MD - 07/28/2024 8:42 AM EDTAssociated Problem(s): Essential hypertension, benign (CMS/HCC) BP controlled and monitor PRN. * Van Lo MD - 07/28/2024 8:42 AM EDTAssociated Problem(s): COPD (chronic obstructive pulmonary disease) ([facility]) Occasional symptoms but tolerable and use albuterol PRN. * Van Lo MD - 07/28/2024 8:00 AM EDT Images from the original note were not included. Subjective Patient ID: Anuja Matta is a 79 y.o. female who presents for No chief complaint on file.. Follow up HTN, back pain, anxiety, COPD, and GERD. Checking BP PRN and typically controlled. BP normal today. Taking medication daily and tolerating without side effects. Back pain stable. Mild pain in low back and across top hips. Occasional radiation into gluteal region and down legs. Pain worse with walking and standing. Using OTC PRN and tolerable. Anxiety stable. Not as stressed out or overwhelmed. Not as nervous or worry as much. Not as torres or irritable. Using xanax PRN and helps when needed. COPD stable. Mild SOB and cough with exertion. Mild fatigue with exertion. No chest tightness. Mild cough but no sputum. Uses albuterol few times a month which helps when needed. GERD controlled with omeprazole. Denies epigastric pain or burning and not waking up with symptoms. Review of Systems Respiratory: Negative for cough, shortness of breath and wheezing. Cardiovascular: Negative for chest pain and palpitations. Gastrointestinal: Negative for abdominal pain, diarrhea, nausea and vomiting. Genitourinary: Negative for dysuria. Objective Physical Exam Constitutional: General: She is not in acute distress. Appearance: Normal appearance. HENT: Head: Normocephalic. Right Ear: Tympanic membrane normal. Left Ear: Tympanic membrane normal. Eyes: Extraocular Movements: Extraocular movements intact. Pupils: Pupils are equal, round, and reactive to light. Cardiovascular: Rate and Rhythm: Normal rate and regular rhythm. Heart sounds: No murmur heard. No friction rub. No gallop. Pulmonary: Effort: Pulmonary effort is normal. Breath sounds: Normal breath sounds. No wheezing, rhonchi or rales. Abdominal: General: Bowel sounds are normal. There is no distension. Palpations: Abdomen is soft. Tenderness: There is no abdominal tenderness. There is no guarding or rebound. Musculoskeletal: Cervical back: Neck supple. Right lower leg: No edema. Left lower leg: No edema. Neurological: Mental Status: She is alert. Assessment/Plan Problem List Items Addressed This Visit Essential hypertension, benign (CMS/HCC) - Primary BP controlled and monitor PRN. Generalized anxiety disorder (CMS/HCC) Symptoms controlled with xanax and use PRN. Gastroesophageal reflux disease Symptoms controlled with omeprazole and continue. Lumbar spondylosis Mild pain but tolerable with OTC. Increase activity and walk regularly. COPD (chronic obstructive pulmonary disease) (CMS/HCC) Occasional symptoms but tolerable and use albuterol PRN. documented in this encounterSt. Luke's HospitalRcfjiulizn72-25-6900 NotePROCEDURE: XR HIP LT 2 3V WO PELVIS COMPARISON: None. HISTORY: Pain of left hip joint FINDINGS: BONES:No fracture, acute abnormality, or significant arthropathy. Focal sclerosis with a narrow zone of transition intertrochanteric femur likely a benign enostosis SOFT TISSUES:Negative. No visible soft tissue swelling. EFFUSION:None visible. OTHER: Negative. IMPRESSION: No acute abnormality Electronically authenticated by: ARNALDO NORIEGA Date: 2022-11-21 12:13[facility]12-04-2022 Evaluation note* Encounter Date Diagnosis Assessment Notes Treatment Notes Treatment Clinical Notes Oct, Acute cough (ICD-10 - R05.1) Oct,ronchitis (ICD-10 - J40)Take medications as directed. Rest and increase fluid [...] weeks for the cough to go away Oct,Urgency of urination (ICD-10 - R39.15) Oct,cute cystitis with hematuria (ICD-10 - N30.01)Take medication as directed. Urine analysis shows abnormalities today in office. Urine culture will be sent to lab. Will call with results if warranted. Increase fluid intake. Follow hygiene guidelines such as wiping front to back, avoid using perfumed lotions, bath beads, bubble bath. Recommend follow up with primary care provider after treatment completed to make sure infection has cleared. [facility] Other 10-24-2021 Evaluation note* Encounter Date Diagnosis Assessment Notes Treatment Notes Treatment Clinical Notes Aug, Frequency of urination (ICD-10 - R35.0) Aug,uspected UTI (ICD-10 - R39.89) Discussed diagnosis with [...] understanding and is agreeable to treatment plan [facility] Other Evaluation noteNo InformationNort [employer] Other Evaluation noteNo assessment information available [facility] Work Phone: Evaluation note* Diagnosis Essential hypertension, benign (CMS/HCC)- Primary Essential hypertension, benign Generalized anxiety disorder (CMS/HCC) Generalized anxiety disorder Lumbar spondylosis Lumbosacral spondylosis without myelopathy Chronic obstructive pulmonary disease, unspecified COPD type (CMS/HCC) Gastroesophageal reflux disease without esophagitis Esophageal reflux Seasonal allergic rhinitis due to pollen Encounter for long-term current use of medication Dyslipidemia (CMS/HCC) Other and unspecified hyperlipidemia Obesity (BMI 30-39.9) Essential hypertension, benign (CMS/HCC)- Primary Essential hypertension, benign Chronic obstructive pulmonary disease, unspecified COPD type (CMS/HCC) Generalized anxiety disorder (CMS/HCC) Generalized anxiety disorder Lumbar spondylosis Lumbosacral spondylosis without myelopathy Gastroesophageal reflux disease without esophagitis Esophageal reflux Medicare annual wellness visit, subsequent- Primary Generalized anxiety disorder (CMS/HCC) Generalized anxiety disorder documented in this encounter [facility] Healthcare[facility]* Diagnosis Essential hypertension, benign (CMS/HCC)- Primary Essential hypertension, benign Chronic obstructive pulmonary disease, unspecified COPD type (CMS/HCC) Generalized anxiety disorder (CMS/HCC) Generalized anxiety disorder Lumbar spondylosis Lumbosacral spondylosis without myelopathy Gastroesophageal reflux disease without esophagitis Esophageal reflux documented in this encounter [facility] HealthcareEvaluation note* Diagnosis Essential hypertension, benign (CMS/HCC)- Primary Essential hypertension, benign Generalized anxiety disorder (CMS/HCC) Generalized anxiety disorder Lumbar spondylosis Lumbosacral spondylosis without myelopathy Chronic obstructive pulmonary disease, unspecified COPD type (CMS/HCC) Gastroesophageal reflux disease without esophagitis Esophageal reflux Seasonal allergic rhinitis due to pollen Encounter for long-term current use of medication Dyslipidemia (CMS/HCC) Other and unspecified hyperlipidemia Obesity (BMI 30-39.9) Essential hypertension, benign (CMS/HCC)- Primary Essential hypertension, benign Chronic obstructive pulmonary disease, unspecified COPD type (CMS/HCC) Generalized anxiety disorder (CMS/HCC) Generalized anxiety disorder Lumbar spondylosis Lumbosacral spondylosis without myelopathy Gastroesophageal reflux disease without esophagitis Esophageal reflux Medicare annual wellness visit, subsequent- Primary Generalized anxiety disorder (CMS/HCC) Generalized anxiety disorder Chronic obstructive pulmonary disease, unspecified COPD type (CMS/HCC) Generalized anxiety disorder (CMS/HCC) Generalized anxiety disorder documented in this encounter [facility] HealthcareEvaluation note* Diagnosis Essential hypertension, benign- Primary Essential hypertension, benign Generalized anxiety disorder Generalized anxiety disorder Lumbar spondylosis Lumbosacral spondylosis without myelopathy Chronic obstructive pulmonary disease, unspecified COPD type (HCC) Gastroesophageal reflux disease without esophagitis Esophageal reflux Seasonal allergic rhinitis due to pollen Encounter for long-term current use of medication Dyslipidemia Other and unspecified hyperlipidemia Obesity (BMI 30-39.9) Essential hypertension, benign- Primary Essential hypertension, benign Chronic obstructive pulmonary disease, unspecified COPD type (HCC) Generalized anxiety disorder Generalized anxiety disorder Lumbar spondylosis Lumbosacral spondylosis without myelopathy Gastroesophageal reflux disease without esophagitis Esophageal reflux Medicare annual wellness visit, subsequent- Primary Generalized anxiety disorder Generalized anxiety disorder Essential hypertension, benign- Primary Essential hypertension, benign Generalized anxiety disorder Generalized anxiety disorder Lumbar spondylosis Lumbosacral spondylosis without myelopathy Chronic obstructive pulmonary disease, unspecified COPD type (HCC) Gastroesophageal reflux disease without esophagitis Esophageal reflux documented in this encounter [facility] general Narrative - Reported* Type Description Date Medical History hypertension Medical Historyacid refluxMedical HistoryosteoarthritisMedical HistoryAnxiety Medical HistoryDepressionSurgical Historytonsillectomy and adenoidectomySurgical HistoryhysterectomySurgical HistoryappendectomySurgical Historyright ankle surgerySurgical Historyright arm lump removedHospitalization HistorySee Above [facility] Other History general Narrative - Reported* Type Description Date Medical History hypertension Medical Historyacid refluxMedical HistoryosteoarthritisMedical HistoryAnxiety Medical HistoryDepressionMedical HistoryANEMICSurgical Historytonsillectomy and adenoidectomySurgical HistoryhysterectomySurgical HistoryappendectomySurgical Historyright ankle surgerySurgical Historyright arm lump removedHospitalization HistorySee Above [facility] Other Chief Complaint and Reason for Visit Chief Complaint R39.15 Chief Complaint congestion, fever,Na derer sent her med for vertigo Advance Directives No Advanced Directives Records Found Advance Directive Response Recorded Date/ Time Advance Directives No September 13, 2021 2:34pm Advance Directive Response Recorded Date/ Time Advance Directives No September 13, 2021 3:34pm Summary Purpose Family History No Family History Records Found Relationship Condition Age at Onset Recorded Date/T [place] father Unknown family memberDeceasedUnknownmotherDeceasedUnknown Additional Source Comments REASON FOR VISIT (unrecogniz ed section and content) ReasonCommentsFollow-up6 MReasonOnset DateCommentsMed [id number] CommentsMedicare Annual Wellness Visit InitialWellnesscough, congestionURINARY FREQUENCY, URGENCY Care Teams (unrecognized sec tion and content) Team Status: Inactive Member Role Status Dates RALPH Delgadillo Attending Provider Active Team Status: Active Member Role Status Dates Van Lo MD Primary Care Provider Active Team Status: Inactive Member Role Status Dates Van Lo MD Primary Care Provider Active S tart: May 19, 2024 End: May 19haydennico VeeEfrem silva ProviderActiveStart: May 19, 2024 End: May 19, 2024Team MemberRelationshipSpecialtyStart DateEnd Date Van Lo MD [address] [place] [address] PCP - GeneralFamily Medicine07/16/23Team MemberRelationshipSpecialtyStart DateEnd Date Van Lo MD [address] [place] [address] PCP - GeneralFamily Medicine07/16/23am MemberRelationshipSpecialtyStart DateEnd Date Van Lo MD [address] [place] [address] PCP - GeneralFamily Medicine07/16/23Team MemberRelationshipSpecialtyStart DateEnd Date Van Lo MD [address] [place] [address] PCP - GeneralFamily Medicine07/16/23Team MemberRelationshipSpecialtyStart DateEnd Date Van Lo MD [address] [place] [address] PCP - GeneralFamily Medicine07/16/23 Van Lo MD [address] [place] [address] PCP - [place]11/12/24Te MemberRelationshipSpecialtyStart DateEnd Date Van Lo MD [address] [place] [phone] PCP - [facility]07/16/23 Van Lo MD [address] [place] [address] PCP - [place]11/12/24Te MemberRelationshipSpecialtyStart DateEnd Date Van Lo MD [address] [place] [phone] PCP - [facility]07/16/23 Van Lo MD [address] [place] [phone] PCP - [facility]11/12/24 Goals (unrecognized section and content) Goals may be documented in a n alternate section INFORMATION SOURCE (unrecogn ized section and content) DATE CREATED AUTHOR 10/18/2022 [facility] DATE CREATED AUTHOR AUTHOR'S ORGANIZ ATION 01/20/2023 [facility] DATE CREATED AUTHOR AUTHOR'S ORGANIZ ATION 05/17/2025 [facility] FOR RECORDS PERTAINING [...] BE BASED ON THE PRIMARY CLINICAL RECORDS. [facility] [employer] [facility]. provides no warranty or guarantee of the accuracy or completeness of information in this document.
[2025-10-14 13:40] LABS: Hematocrit 50.3 % (36.0-48.0); Hemoglobin 17.1 g/dL (12.0-16.0); Immature Granulocytes Abs Auto 0.03 10^3/uL (0.00-0.03); Immature Granulocytes Pct Auto 0.4 % (0.0-0.5); Lymphocytes Absolute Auto 2.9 10^3/uL (1.2-3.8); Mean Corpuscular HGB Conc 34.0 g/dL (29.9-35.2); Mean Corpuscular Hemoglobin 30.4 pg (26.7-34.0); Mean Corpuscular Volume 89.3 fL (81.0-99.0); Platelet Count 247 10^3/uL (150-450); Red Blood Count 5.63 10^6/uL (4.20-5.40); White Blood Count 7.6 10^3/uL (4.0-11.0)
[2025-10-14 14:29] LABS: Alanine Aminotransferase 31 U/L (14-59); Albumin Globulin Ratio 1.2; Albumin Level 3.9 g/dL (3.4-5.0); Alkaline Phosphatase 106 U/L (46-116); Anion Gap 8.4; Aspartate Amino Transferase 16 U/L (15-37); Blood Urea Nitrogen 13.0 mg/dL (7.0-18.0); Calcium 10.0 mg/dL (8.5-10.1); Carbon Dioxide 31.6 mmol/L (21.0-32.0); Chloride 108 mmol/L (98-107); Cholesterol 231 mg/dL (<=200); Estimated GFR (African America >60 (>=60 mL/min/1.73m^2); Estimated GFR (Non-African Ame >60 (>=60 mL/min/1.73m^2); Globulin 3.2 g/dL; Glucose 90 mg/dL (74-106); HDL Cholesterol 69 mg/dL (40-60); Potassium 4.0 mmol/L (3.5-5.1); Sodium 144 mmol/L (136-145); Thyroid Stimulating Hormone 1.089 uIU/mL (0.358-3.740); Total Protein 7.1 g/dL (6.4-8.2); Triglycerides 251 mg/dL (<=150); VLDL CHOLESTEROL 50.2 mg/dL
== END 2025-10-14 13:17 | disposition home or self-care (01) ==
LOC: LAB 13:20
PROVIDERS: PCP Family Medicine; Visit Provider Family Medicine
DX: E78.5 Hyperlipidemia, unspecified (principal); Z79.899 Other long term (current) drug therapy; R53.83 Other fatigue
CPT/HCPCS: 36415; 80053; 80061; 84443; 85025